=== PATIENT | male | born 1950 | race Caucasian/White ===

== ENCOUNTER 2016-07-05 01:47 | Observation (INO) | payer OTHER ==
--- NOTE | 2016-07-05 01:52 | EDPHY ---
H & P HPI/ROS: HPI CHIEF COMPLAINT: Lightheadedness HISTORY OF PRESENT ILLNESS: This patient very pleasant 65-year-old male, significant past medical history for COPD, coronary artery disease, bypass surgery, and presents emergency room by private vehicle with lightheadedness and a feeling as if he is going to pass out. Patient states he does feel slightly short of breath does not endorse any significant chest pain he tells me at times he does have some intermittent chest discomfort. He tells me he feels similar to when he was seen in the emergency room on 02/16/2016 and was diagnosed with dehydration. At that time he was having lightheadedness he had negative troponins a nonischemic EKG and a normal echocardiogram at that time. Since then he has followed up with Dr. Caban. Currently patient tells me he feels lightheaded he denies chest pain. Past Medical History: Coronary artery disease, COPD Past Surgical History: CABG Social History: denies daily use of drugs alcohol tobacco products Family History: Noncontributory ROS REVIEW OF SYSTEMS: A comprehensive 10 point review of systems is otherwise negative aside from elements mentioned in the history of present illness. Exam Constitutional triage nursing summary reviewed, vital signs reviewed, awake/ alert. Eyes normal conjunctivae and sclera, EOMI, PERRLA. HENT normal inspection, atraumatic, moist mucus membranes, no epistaxis, neck supple/ no meningismus, no raccoon eyes. Respiratory clear to auscultation bilaterally, normal breath sounds, no respiratory distress, no wheezing. Cardiovascular bradycardia, regular rhythm, no murmur, no edema, distal pulses normal. Gastrointestinal soft, non-tender, no rebound, no guarding, normal bowel sounds, no distension, no pulsatile mass. Genitourinary no CVA tenderness. Musculoskeletal no midline vertebral tenderness, full range of motion, no calf swelling, no tenderness of extremities, no meningismus, good pulses, neurovascularly intact. Skin pink, warm, & dry, no rash, skin atraumatic. Neurologic awake, alert and oriented x 3, AAOx3, moves all 4 extremities equally, motor intact, sensory intact, CN II-XII intact, normal cerebellar, normal vision, normal speech. Psychiatric normal mood/affect. Heme/Lymph/Immune no lymphadenopathy. Differential diagnosis includes but is not limited to: ACS, atypical chest pain , pneumothorax, pneumonia, pulmonary embolism, aortic dissection, congestive heart failure, tumor, musculoskeletal pain, esophageal pain, GERD, peptic ulcer disease, pancreatitis Medical Decision Making: This patient be placed on full seo manager will obtain EKG, cardiac markers troponin and electrolytes. Patient received a fluid bolus.Will evaluate him for lightheadedness and shortness of breath. He has extensive cardiac history and will need evaluate this. Re-evaluation: EKG interpretation by me on record in [employer] system. Impression time of EKG 2:07 a.m., this EKG shows bradycardia significant T-wave abnormality in V4 V5 V6. There is a first-degree AV block with a MA interval of 338 left bundle- branch block present.When I compare this to his old EKG dated 02/16/2016 this is sinus rhythm with a left bundle-branch block present. The rate at that time was 95. His EKG today shows profound bradycardia. 0212: due to this patient's complaint of lightheadedness and severe bradycardia patient has been moved to ER room 2. He has been placed on full seo manager and life pack in case we need to pace. 0238: I spoke with Dr. Julio re-evaluated and saw the EKG. Bradycardia with 2- 1 block. He will come and see and evaluate the patient. This time the patient is resting comfortably no complaints no chest pain. Heart rate is currently 38 pulse ox 95% blood pressure 114/51. He remains on seo manager. He will be admitted to PCU for close observation. At this time Dr. Julio will come and see and evaluate the patient hold off on atropine last patient comes more stable. ED x-ray chest one view negative for acute cardiopulmonary disease. 0241: troponin noted to be positive. Patient has no chest pain at this time. Critical Care: Total Critical Care Time Spent Managing this Patient: 65 Minutes. This time was spent Exclusively with this patient. This Care was exclusive of procedures. The Organ System/life at risk was cardiac This Patient was in Critical Condition because severe bradycardia, positive troponin Source: Patient - Medical/Surgical History Hx Asthma: No Hx Chronic Respiratory Disease: Yes Hx Diabetes: No Hx Cardiac Disease: Yes Hx Renal Disease: No Hx Cirrhosis: No Hx Alcoholism: No Hx HIV/AIDS: No Hx Splenectomy or Spleen Trauma: No Other PMH: PMH: COPD, QUADRUPAL BYPASS stents x7,CHRONIC LUNG INFECTION,. espophogeal dilitation - Social History Smoking Status: Former smoker Constitutional: Initial Vital Signs Temperature (C) 36.8 C 07/05/16 01:52 Heart Rate 40 L 07/05/16 01:52 Respiratory Rate 20 07/05/16 01:52 Blood Pressure 138/62 H 07/05/16 01:52 O2 Sat (%) 92 07/05/16 01:52 O2 Delivery Mode Nasal Cannula O2 (L/minute) 2 Allergies/Adverse Reactions: No Known Allergies Allergy (Unverified 04/26/14 16:42) Home Medications: Medication Instructions Recorded predniSONE 10 mg PO DAILY 04/12/14 Albuterol [Proventil Inhaler HFA 2 puffs IH DAILY 07/05/16 (*)] Albuterol [Proventil Inhaler HFA 2 puffs IH Q4 PRN 07/05/16 (*)] Aspirin [Aspirin 81mg (*)] 81 mg PO DAILY 07/05/16 Cholecalciferol Vit D3 [Vitamin D3 1,000 units PO DAILY 07/05/16 (*)] Medical Decision Making - Data Points Laboratory Results: Laboratory Results 07/05/16 02:05 07/05/16 02:05 Medications Given: Discontinued Medications Aspirin (Aspirin) 324 mg PO EDNOW ONE Stop: 07/05/16 01:59 Last Admin: 07/05/16 02:13 Dose: 324 mg Bacitracin (Bacitracin 1000 Ml Irrigation) 50,000 units IRR ONCALL ONE Stop: 07/05/16 03:58 Last Admin: 07/05/16 10:49 Dose: Not Given Diazepam (Valium) 5 mg PO ONCALL ONE Stop: 07/05/16 11:29 Last Admin: 07/05/16 20:23 Dose: Not Given Diphenhydramine HCl (Benadryl) 25 mg PO ONCALL ONE Stop: 07/05/16 11:29 Last Admin: 07/05/16 20:23 Dose: Not Given Cefazolin Sodium/Dextrose (Ancef 2 Gm (Premix)) 100 mls @ 200 mls/hr IV ONCALL ONE PRN Reason: Protocol Stop: 07/05/16 04:26 Last Admin: 07/05/16 10:50 Dose: Not Given Cefazolin Sodium/Dextrose (Ancef 1 Gm (Premix)) 50 mls @ 200 mls/hr IV Q8H SHAVONNE PRN Reason: Protocol Stop: 07/05/16 18:14 Last Admin: 07/05/16 20:23 Dose: 50 mls Departure - Departure Disposition: [facility] Acute Clinical Impression: Symptomatic bradycardia Condition: Critical
[2016-07-05] MEDS ORDERED: ASPIRIN 81 MG CHEWABLE TAB PO ONE (01:58)
--- NOTE | 2016-07-05 02:04 | CPEKG ---
Heart Rate: 38 RR Interval: 1579 P-R Interval: 142 QRSD Interval: 168 QT Interval: 572 QTC Interval: 455 P [place]: 81 QRS [place]: -67 T Wave [place]: -82 EKG Severity - ABNORMAL ECG - EKG Impression: SINUS BRADYCARDIA EKG Impression: IVCD, CONSIDER ATYPICAL LBBB Electronically Signed By: Montez Vyas 05-Jul-2016 07:29:26
[2016-07-05 02:19] LABS: % IMMATURE GRANULYOCYTES 1.3 % (0.0-1.1); ABSOLUTE IMMATURE GRANULOCYTES 0.19 10^3/uL (0.00-0.10); ABSOLUTE NRBC COUNT 0.03 10^3/uL (0-0.01); ADD DIFF? NO; ADD MORPH? NO; ADD SCAN? NO; ATYPICAL LYMPHOCYTE FLAG 0 (0-99); FRAGMENT RBC FLAG 0 (0-99); HEMATOCRIT 49.6 % (40.0-51.0); HEMOGLOBIN 16.8 g/dL (13.7-17.5); LEFT SHIFT FLG 10 (0-99); LIPEMIA HEMOLYSIS FLAG 90 (0-99); MEAN CELL HEMOGLOBIN 33.3 pg (27.9-34.1); MEAN CELL HEMOGLOBIN CONCENTR. 33.9 g/dL (32.4-36.7); MEAN CELL VOLUME 98.2 fL (81.5-99.8); MEAN PLATELET VOLUME 10.4 fL (8.7-11.7); NRBC-AUTO% 0.2 % (0.0-0.2); PLATELET CLUMPS FLAG 0 (0-99); PLATELET COUNT 376 10^3/uL (150-400); RED BLOOD CELL COUNT 5.05 10^6/uL (4.40-6.38); RED CELL DISTRIBUTION WIDTH 13.5 % (11.5-15.2)
[2016-07-05 02:26] LABS: APTT 24.6 SEC (23.0-38.0); INR 0.96 (0.83-1.16); PROTIME(PATIENT) 12.7 SEC (12.0-15.0)
[2016-07-05 02:27] LABS: ALANINE AMINOTRANSFERASE 122 IU/L (21-72); ALBUMIN 4.1 g/dL (3.5-5.0); ALKALINE PHOSPHATASE 79 IU/L (38-126); ANION GAP 13 mEq/L (8-16); ASPARTATE AMINOTRANSFERASE 102 IU/L (17-59); BILIRUBIN,TOTAL 0.9 mg/dL (0.1-1.4); BILIRUBIN-CONJUGATED 0.3 mg/dL (0.0-0.5); BILIRUBIN-UNCONJUGATED 0.6 mg/dL (0.0-1.1); CALCIUM 9.4 mg/dL (8.5-10.4); CARBON DIOXIDE 27 mEq/l (22-31); CHLORIDE 99 mEq/L (97-110); GLOMERULAR FILTRATION RATE > 60; GLUCOSE 128 mg/dL (70-100); MAGNESIUM 1.9 mg/dL (1.6-2.3); POTASSIUM 3.9 mEq/L (3.5-5.2); SODIUM 139 mEq/L (134-144); TOTAL PROTEIN 7.4 g/dL (6.3-8.2)
[2016-07-05 02:39] LABS: CREATINE KINASE-MB FRACTION 2.24 ng/mL (0-3.19); TROPONIN I 0.497 ng/mL (0-0.034)
--- NOTE | 2016-07-05 03:32 | PDCARCONS ---
Cardiology Consult Reason for Consult: Second-degree and third-degree heart block, shortness of breath, dizziness Chief Complaint: dizziness, shortness of breath Requesting Physician: Dr. Montez Vyas History of Present Illness: 65-year-old male, known to our practice. He sees my partner Dr. Juventino Caban to the science May. He has a history of coronary artery disease, status post CABG in 2007. At that time the grafts included MAYA to LAD, SVG to diagonal, SVG to obtuse marginal and SVG to right coronary artery. He presented with acute coronary syndrome in the year after his CABG and underwent stenting on 2 occasions, according to the patient he has 7 stents, 2 stents were placed SVG to RCA, ramus intermedius, lad and obtuse marginal. He has been feeling intermittent dizziness over the last year. In February he came to the emergency room with an episode of near syncope, no etiology was discovered and he was discharged home. He was sleeping yesterday evening, walk up around 830 feeling dizzy. He noticed that his pulse was slow and arrived to the emergency room. At this time he reports ongoing dizziness. He has shortness of breath which is at baseline according to him. He denies any acute chest discomfort at this time. History Information - Allergies/Home Medication List Allergies/Adverse Reactions: No Known Allergies Allergy (Unverified 04/26/14 16:42) Home Medications: predniSONE 10 mg PO DAILY 04/12/14 [Last Taken 04/11/14] Albuterol [Proventil Inhaler HFA (RX)] 2 puffs IH Q4 04/26/14 [Last Taken Unknown] I have personally reviewed and updated: family history, medical history, social history - Surgical History Reports: coronary bypass surgery ( A) - Social History Smoking Status: Former smoker Physical Exam Temp Pulse Resp BP Pulse Ox 36.8 C 40 L 20 138/62 H 92 07/05/16 01:52 07/05/16 01:52 07/05/16 01:52 07/05/16 01:52 07/05/16 01:52 Eyes: PERRL, EOMI Ears, Nose, Mouth, Throat: moist mucous membranes Cardiovascular: regular rate and rhythym, bradycardia Respiratory: respiratory distress Gastrointestinal: normoactive bowel sounds, distension Genitourinary: no bladder fullness Skin: warm Musculoskeletal: full muscle strength Neurologic: AAOx3 Psychiatric: interacting appropriately, anxious Lab and Imaging 07/05/16 02:05 07/05/16 02:05 WBC 14.57 10^3/uL (3.80-9.50) H 07/05/16 02:05 RBC 5.05 10^6/uL (4.40-6.38) 07/05/16 02:05 Hgb 16.8 g/dL (13.7-17.5) 07/05/16 02:05 Hct 49.6 % (40.0-51.0) 07/05/16 02:05 MCV 98.2 fL (81.5-99.8) 07/05/16 02:05 MCH 33.3 pg (27.9-34.1) 07/05/16 02:05 MCHC 33.9 g/dL (32.4-36.7) 07/05/16 02:05 RDW 13.5 % (11.5-15.2) 07/05/16 02:05 Plt Count 376 10^3/uL (150-400) 07/05/16 02:05 MPV 10.4 fL (8.7-11.7) 07/05/16 02:05 Neut % (Auto) 68.8 % (39.3-74.2) 07/05/16 02:05 Lymph % (Auto) 20.3 % (15.0-45.0) 07/05/16 02:05 [place] % (Auto) 6.7 % (4.5-13.0) 07/05/16 02:05 Eos % (Auto) 2.4 % (0.6-7.6) 07/05/16 02:05 Baso % (Auto) 0.5 % (0.3-1.7) 07/05/16 02:05 Nucleat RBC Rel Count 0.2 % (0.0-0.2) 07/05/16 02:05 Absolute Neuts (auto) 10.02 10^3/uL (1.70-6.50) H 07/05/16 02:05 Absolute Lymphs (auto) 2.96 10^3/uL (1.00-3.00) 07/05/16 02:05 Absolute Monos (auto) 0.97 10^3/uL (0.30-0.80) H 07/05/16 02:05 Absolute Eos (auto) 0.35 10^3/uL (0.03-0.40) 07/05/16 02:05 Absolute Basos (auto) 0.08 10^3/uL (0.02-0.10) 07/05/16 02:05 Absolute Nucleated RBC 0.03 10^3/uL (0-0.01) H 07/05/16 02:05 Immature Gran % 1.3 % (0.0-1.1) H 07/05/16 02:05 Immature Gran # 0.19 10^3/uL (0.00-0.10) H 07/05/16 02:05 PT 12.7 SEC (12.0-15.0) 07/05/16 02:05 INR 0.96 (0.83-1.16) 07/05/16 02:05 APTT 24.6 SEC (23.0-38.0) 07/05/16 02:05 Sodium 139 mEq/L (134-144) 07/05/16 02:05 Potassium 3.9 mEq/L (3.5-5.2) 07/05/16 02:05 Chloride 99 mEq/L (97-110) 07/05/16 02:05 Carbon Dioxide 27 mEq/l (22-31) 07/05/16 02:05 Anion Gap 13 mEq/L (8-16) 07/05/16 02:05 BUN 23 mg/dL (7-23) 07/05/16 02:05 Creatinine 1.0 mg/dL (0.7-1.3) 07/05/16 02:05 Estimated GFR > 60 07/05/16 02:05 Glucose 128 mg/dL (70-100) H 07/05/16 02:05 Calcium 9.4 mg/dL (8.5-10.4) 07/05/16 02:05 Magnesium 1.9 mg/dL (1.6-2.3) 07/05/16 02:05 Total Bilirubin 0.9 mg/dL (0.1-1.4) 07/05/16 02:05 Conjugated Bilirubin 0.3 mg/dL (0.0-0.5) 07/05/16 02:05 Unconjugated Bilirubin 0.6 mg/dL (0.0-1.1) 07/05/16 02:05 AST 102 IU/L (17-59) H 07/05/16 02:05 ALT 122 IU/L (21-72) H 07/05/16 02:05 Alkaline Phosphatase 79 IU/L (38-126) 07/05/16 02:05 Creatine Kinase 61 IU/L (0-224) 07/05/16 02:05 CK-MB (CK-2) Fraction 2.24 ng/mL (0-3.19) 07/05/16 02:05 Troponin I 0.497 ng/mL (0-0.034) H 07/05/16 02:05 NT-Pro-B Natriuret Pep 1110 pg/mL (0-125) H 07/05/16 02:05 Total Protein 7.4 g/dL (6.3-8.2) 07/05/16 02:05 Albumin 4.1 g/dL (3.5-5.0) 07/05/16 02:05 Lipase 29.0 IU/L (23-300) 07/05/16 02:05 Visualized and Interpreted Chest x-ray results: Yes Visualized and Interpreted EKG results: Yes EKG Interpretation: Positive for: left bundle branch block EKG additional interpertation: 2-1 av block. Telemetry: Predominantly 2-1 av block with intermittent complete heart block. Underlying left bundle-branch block. Echocardiogram: Stat echocardiogram has been ordered and is pending at the time of this dictation A/P Assessment: 1. Coronary artery disease status post CABG and subsequent multiple PCIs 2. ischemic cardiomyopathy with last reported left ventricular ejection fraction of 40-45% 3. conduction system disease with known pre-existing left bundle-branch block, currently has 2-1 av block and intermittent complete heart block 4.COPD 5. 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 He has ischemic cardiomyopathy with known left ventricular ejection fraction of 40-45%. He has steroid-dependent COPD. He has underlying hyperlipidemia. He had presented with presyncope in February of 2016. No etiology was identified. Is presenting with similar symptoms now, he has underlying conduction system disease with left bundle-branch block and currently has 2-1 heart block and intermittent complete AV block on telemetry monitoring. Permanent pacemaker is indicated. Risks of the procedure were discussed with him and his , these include , cardiac perforation, pneumothorax, infection, DVT, bleeding etc. Procedure will be performed this morning. His troponin I is mildly elevated at 0.4. His BNP is also elevated at 1100. His EKG at 2:07 a.m. shows normal sinus rhythm, 2-1 av block with a ventricular rate of 39 beats per minute and left bundle branch block. Compared to old EKG from January 2016, the QRS morphology is similar. However T inversions in leads 2-3 AVF and V3 to V6 are new compared to the previous EKG. Current findings are consistent with myocardial ischemia due to hypoperfusion and bradyarrhythmia. We will obtain a stat echocardiogram to assess for any new wall motion abnormalities. In the absence of wall motion abnormalities, will proceed directly to permanent pacemaker implantation. If there are new wall motion abnormalities, he will need coronary angiography and temporary pacemaker followed by implantation of permanent pacemaker. Above was discussed with the patient and his . They understand the risks and willing to proceed.
--- NOTE | 2016-07-05 03:46 | CPEKG ---
Heart Rate: 38 RR Interval: 1579 QRSD Interval: 168 QT Interval: 580 QTC Interval: 462 P [place]: 72 QRS [place]: -62 T Wave [place]: 260 EKG Severity - ABNORMAL ECG - EKG Impression: COMPLETE AV BLOCK WITH WIDE QRS COMPLEX Electronically Signed By: Montez Vyas 05-Jul-2016 07:29:26
[2016-07-05] MEDS ORDERED: ceFAZolin 2 GM/DEXTROSE 100 ML IV ONE (03:57)
[2016-07-05] MEDS ORDERED: BACITRACIN IRRIGATION/NS 50,000 UNITS/1,000 ML BTL IRR ONE (03:57)
[2016-07-05] MEDS ORDERED: NS 1,000 ML IV SCH (04:00)
[2016-07-05] MEDS ORDERED: LIDOCAINE 1% 30 ML SDV ONE ×2 (04:12→12:25)
[2016-07-05] MEDS ORDERED: BUPIVACAINE 0.5% 30 ML SDV ONE (04:13)
[2016-07-05] MEDS ORDERED: MIDAZOLAM 2 MG/2 ML VIAL ONE ×4 (04:13→14:51)
[2016-07-05] MEDS ORDERED: fentaNYL 100 MCG/2 ML INJ ONE ×3 (04:13→14:11)
--- NOTE | 2016-07-05 04:18 | ECHO ---
[id number] + + [address] : : [place] [address] : : [phone] + + Adult Echocardiographic Report + --------+ :Name: SUNNI SNYDER Date: 07/05/2016 04:00 AM : : Hospital Admission Number: [id number] Loca tion: ER: :: 1950 Gender: Male : :Age: 65 yrs Race: WH : :Reason For Study: heart block elev trop : :History: bradycardia, sob, cad : + --------+ MMode/2D Measurements \T\ Calculations IVSd: 0.99 cm LVIDd: 4.4 cmFS: 27.0 % LVLd ap4: 9.2 cm LVPWd: 0.89 cm LVIDs: 3.2 cmEDV(Teich): 87.7 mlEDV(MOD-sp4): 120.0 ml ESV(Teich): 41.3 mlLVLs ap4: 7.8 cm EF(Teich): 52.9 % ESV(MOD-sp4): 57.0 ml EF(MOD-sp4): 52.5 % SV(MOD-sp4): 63.0 ml Normal Measurement Values: + + :LVIDd (3.5-5.7cm) IVSd (0.6-1.1cm) LVPWd (0.6-1.1cm) Aortic Root (2.0-3.7cm)Left Atrium (1.5-4.0cm): :LV Vol(d) (76-115ml) LV Vol(s) (29-48ml) Ejec Fraction (50-65%)PV Mika (0.6- 1.2m/s) TV Mika (0.4-1.0m/s) : :MV E Mika (0.8-1.0m/s)MV A Mika (0.3-1.0m/s)LVOT Mika (0.7-1.2m/s) Asc Ao Mika ( 0.9-1.8m/s) : + + Doppler Measurements \T\ Calculations MV E max mika: Ao V2 max: LV V1 max: TR max mika: 96.3 cm/sec 147.0 cm/sec 92.8 cm/sec 322.0 cm/sec MV A max mika: Ao max PG: LV V1 max PG: TR max P.0 cm/sec 8.6 mmHg 3.4 mmHg 41.5 mmHg MV E/A: 0.84 RAP systole: 10.0 mmHg RVSP(TR): 51.5 mmHg Left Ventricle The left ventricle is normal in size. There is normal left ventricular wall thickness. Left ventricular systolic function is low normal. Ejection Fraction = 50%. Basal inferior hypokinesis. Abnormal septal motion consistent with BBB. Right Ventricle The right ventricle is normal in size and function. Atria The left atrium is mildly dilated. The right atrium is mildly dilated. A dilated inferior vena cava suggests increased right atrial pressure. Mitral Valve The mitral valve is normal in structure and function. There is no mitral valve stenosis. There is mild to moderate mitral regurgitation. Tricuspid Valve The tricuspid valve is normal in structure and function. There is no tricuspid stenosis. There is mild to moderate tricuspid regurgitation. Right ventricular systolic pressure is 51mmHg. There is Doppler evidence for moderate pulmonary hypertension. Aortic Valve The aortic valve is trileaflet. There is mild aortic valve calcification. There is no aortic stenosis. Trace to mild aortic regurgitation. Pulmonic Valve The pulmonic valve is normal in structure and function. Mild pulmonic valvular regurgitation. Pericardium/Pleural There is no pericardial effusion. Conclusion A two-dimensional transthoracic echocardiogram with M-mode and Doppler was performed. Left ventricular systolic function is low normal. Ejection Fraction = 50%. Basal inferior hypokinesis. Abnormal septal motion consistent with BBB. The left atrium is mildly dilated. A dilated inferior vena cava suggests increased right atrial pressure. There is mild to moderate mitral regurgitation. There is mild to moderate tricuspid regurgitation. Right ventricular systolic pressure is 51mmHg. There is Doppler evidence for moderate pulmonary hypertension. Trace to mild aortic regurgitation. Mild pulmonic valvular regurgitation. Final Reading Physician: Blane Julio MD electronically signed on 07/05/2016 04:16 AM Ordering Physician: Montez Vyas Performed By: Carrie Rogers
[2016-07-05] MEDS ORDERED: IOPAMIDOL (ISOVUE-370) 150 ML BTL IV ONE ×5 (04:42→14:58)
--- NOTE | 2016-07-05 08:35 | CPEKG ---
Heart Rate: 39 RR Interval: 1538 P-R Interval: 338 QRSD Interval: 156 QT Interval: 576 QTC Interval: 464 P [place]: 0 QRS [place]: -66 T Wave [place]: 259 EKG Severity - ABNORMAL ECG - EKG Impression: COMPLETE HEART BLOCK WITH VENTRICULAR ESCAPE Electronically Signed By: Tricia Eid 06-Jul-2016 10:31:28
[2016-07-05 10:25] LABS: ADD DIFF? NO; ADD MORPH? NO; ADD SCAN? NO; ATYPICAL LYMPHOCYTE FLAG 10 (0-99); FRAGMENT RBC FLAG 10 (0-99); HEMATOCRIT 46.1 % (40.0-51.0); HEMOGLOBIN 15.7 g/dL (13.7-17.5); LEFT SHIFT FLG 0 (0-99); LIPEMIA HEMOLYSIS FLAG 90 (0-99); MEAN CELL HEMOGLOBIN 32.5 pg (27.9-34.1); MEAN CELL HEMOGLOBIN CONCENTR. 34.1 g/dL (32.4-36.7); MEAN CELL VOLUME 95.4 fL (81.5-99.8); MEAN PLATELET VOLUME 10.2 fL (8.7-11.7); PLATELET CLUMPS FLAG 10 (0-99); PLATELET COUNT 332 10^3/uL (150-400); RED BLOOD CELL COUNT 4.83 10^6/uL (4.40-6.38); RED CELL DISTRIBUTION WIDTH 13.6 % (11.5-15.2)
[2016-07-05] MEDS ORDERED: ALBUTEROL 60 PUFFS/8 GM MDI IH PRN (10:26)
--- NOTE | 2016-07-05 10:43 | CPEKG ---
Heart Rate: 85 RR Interval: 706 P-R Interval: 184 QRSD Interval: 150 QT Interval: 452 QTC Interval: 538 P [place]: 73 QRS [place]: -87 T Wave [place]: 76 EKG Severity - ABNORMAL ECG - EKG Impression: ATRIAL-SENSED VENTRICULAR-PACED RHYTHM Electronically Signed By: Tricia Eid 05-Jul-2016 15:09:32
[2016-07-05 10:53] LABS: ANION GAP 7 mEq/L (8-16); CALCIUM 8.6 mg/dL (8.5-10.4); CARBON DIOXIDE 24 mEq/l (22-31); CHLORIDE 107 mEq/L (97-110); CREATININE 0.8 mg/dL (0.7-1.3); GLOMERULAR FILTRATION RATE > 60; GLUCOSE 123 mg/dL (70-100); POTASSIUM 4.2 mEq/L (3.5-5.2); SODIUM 138 mEq/L (134-144)
[2016-07-05] MEDS ORDERED: DIAZEPAM 5 MG TAB PO ONE (11:28)
[2016-07-05] MEDS ORDERED: diphenhydrAMINE 25 MG CAP PO ONE ×2 (11:28→13:06)
--- NOTE | 2016-07-05 11:55 | CPEKG ---
Heart Rate: 89 RR Interval: 674 P-R Interval: 188 QRSD Interval: 154 QT Interval: 452 QTC Interval: 551 P [place]: 61 QRS [place]: -85 T Wave [place]: 79 EKG Severity - ABNORMAL ECG - EKG Impression: ATRIAL-SENSED VENTRICULAR-PACED RHYTHM Electronically Signed By: Tricia Eid 06-Jul-2016 10:30:21
[2016-07-05] MEDS: ALBUTEROL 60 PUFFS/8 GM MDI IH SCH (12:53)
[2016-07-05] MEDS ORDERED: DIAZEPAM 5 MG TAB ONE (13:07)
[2016-07-05] MEDS ORDERED: ASPIRIN EC 325 MG TAB PO ONE (13:07)
[2016-07-05] MEDS ORDERED: FAMOTIDINE 20 MG TAB ONE (13:07)
[2016-07-05] MEDS ORDERED: HEPARIN 10,000 UNIT/10 ML MDV ONE (13:44)
[2016-07-05] MEDS ORDERED: ATROPINE SULFATE 1 MG/10 ML SYR ONE ×2 (14:51→16:07)
[2016-07-05] MEDS ORDERED: IOPAMIDOL (ISOVUE-300) 100 ML BTL IV ONE (14:55)
--- NOTE | 2016-07-05 15:55 | CPEKG ---
Heart Rate: 78 RR Interval: 769 P-R Interval: 200 QRSD Interval: 152 QT Interval: 468 QTC Interval: 534 P [place]: 95 QRS [place]: -89 T Wave [place]: 81 EKG Severity - ABNORMAL ECG - EKG Impression: ATRIAL-SENSED VENTRICULAR-PACED RHYTHM Electronically Signed By: Tricia Eid 06-Jul-2016 10:30:07
--- NOTE | 2016-07-05 16:55 | SOAPPROG ---
SOAP Progress Note Assessment/Plan: Assessment: 1. Complete heart block. He is status post placement of a dual-chamber pacemaker. He is doing well. No apparent complications are noted. 2. History of coronary artery disease. This is detailed in Dr. Julio note. It has been 9 years since he has had an invasive evaluation. He states he had a stress test done a year ago at [facility] ([place], [place]). He is not sure of those results. Did have evidence of a troponin elevation at the time of this hospitalization. 3. Hyperlipidemia. 4. Reactive airway disease. Given his extensive cardiovascular disease history and presentation with elevated cardiac enzymes, he and I discussed further risk stratification. We specifically discussed both invasive and noninvasive options. After that discussion he elected to proceed with coronary angiography. The risks, benefits and alternatives were discussed with him. Further recommendations will be made pending the results of that study. 07/05/16 16:56 Subjective: The patient was seen and examined. His chart was reviewed. He had a pacemaker placed last night with Dr. Blane Julio given his presentation with complete heart block in symptoms of fatigue. He has been doing well since then. Notes that he is not experiencing chest pain or breathlessness. He did have an elevation of his cardiac enzymes with an extensive coronary disease history. Objective: Vital Signs Temp Pulse Resp BP Pulse Ox 36.6 C 85 12 120/62 95 07/05/16 12:00 07/05/16 12:00 07/05/16 12:00 07/05/16 12:00 07/05/16 12:00 Laboratory Results 07/05/16 10:00 07/05/16 10:00 07/04/16 07/05/16 07/06/16 05:59 05:59 05:59 Intake Total 50 Balance 50 PT 12.7 SEC (12.0-15.0) 07/05/16 02:05 INR 0.96 (0.83-1.16) 07/05/16 02:05 Physical Exam - Physical Exam General Appearance: WD/WN, no apparent distress Neck: non-tender, full range of motion Respiratory: lungs clear Cardiac/Chest: regular rate, rhythm, other (The pacemaker implantation site is bandaged with no indication of hematoma), No edema, No gallop, No JVD Peripheral Pulses: 2+: carotid (R), carotid (L) Abdomen: non-tender, soft Neuro/Psych: alert, normal mood/affect, oriented x 3 ICD10 Worksheet Patient Problems: Problems Problem Status Onset Dysphagia Acute Symptomatic bradycardia Acute
--- NOTE | 2016-07-05 16:58 | POSTOPPROG ---
Post Op Note Date of Operation: 07/05/16 Surgeon: Ernesto Chris Anesthesia: IV Sedation Pre-op Diagnosis: Coronary artery disease, elevated cardiac enzymes. Post-op Diagnosis: Same. Indication: Same. Procedure: Left heart catheterization, coronary angiography, left ventriculography, le Findings: See dictation. Inf/Abcess present in the surg proc area at time of surgery?: No Depth: Superfical (Skin SQ) EBL: Minimal Complications: The procedure was complicated by dissection of the right subclavian artery at the level of the internal mammary artery.
[2016-07-05] MEDS ORDERED: 1/2 NS 1,000 ML IV SCH (17:00)
[2016-07-05] MEDS ORDERED: ZOLPIDEM TARTRATE 5 MG TAB PO PRN (17:45)
[2016-07-05] MEDS: CLOPIDOGREL BISULFATE 75 MG TAB PO SCH (20:23)
[2016-07-06] MEDS: CLOPIDOGREL BISULFATE 75 MG TAB PO SCH (08:03)
[2016-07-06 08:05] VITALS: BP 127/76; PULSE 80; RESP 12; TEMP 97.8; O2SAT 95
[2016-07-06] MEDS ORDERED: ROSUVASTATIN CALCIUM 10 MG TAB PO SCH (09:00)
[2016-07-06] MEDS ORDERED: CHOLECALCIFEROL VIT D3 1,000 UNITS TAB PO SCH (09:00)
[2016-07-06] MEDS ORDERED: ASPIRIN 81 MG CHEWABLE TAB PO SCH (09:00)
[2016-07-06] MEDS ORDERED: predniSONE 10 MG TAB PO SCH (09:00)
--- NOTE | 2016-07-06 09:24 | CPEKG ---
Heart Rate: 81 RR Interval: 741 P-R Interval: 178 QRSD Interval: 160 QT Interval: 448 QTC Interval: 520 P [place]: 78 QRS [place]: -94 T Wave [place]: 75 EKG Severity - ABNORMAL ECG - EKG Impression: ATRIAL-SENSED VENTRICULAR-PACED COMPLEXES EKG Impression: LEFT ATRIAL ABNORMALITY Electronically Signed By: Tricia Eid 06-Jul-2016 10:29:56
[2016-07-06] MEDS: ALBUTEROL 60 PUFFS/8 GM MDI IH SCH (09:28)
--- NOTE | 2016-07-06 09:35 | GDS ---
[f rep st] DISCHARGE SUMMARY DISCHARGE DIAGNOSES: 1. Current presentation with symptomatic complete heart block. Status post permanent dual-chamber [employer] pacemaker implantation. 2. Known coronary artery disease. Previous bypass surgery in 2007. Previous multivessel PCI also in 2007. During this hospitalization, developed a type 2 non-ST elevation myocardial infarction. 3. Hyperlipidemia. 4. Hypertension. 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 He was found to be in complete heart block. His heart rate was 38 beats p er minute. He went to the cardiac catheterization laboratory, where a permanent dual-chamber pacema ker was placed by Dr. Blane Julio. There were no complications related to this procedure; and with r espect to his pacemaker implantation and heart block, he did well for the remainder of his hospital course. During this hospitalization, cardiac enzymes were trended. He did have a peak troponin of 0.86. Be cause of his troponin elevation and known coronary disease, he underwent cardiac catheterization. A full and separately dictated report is date detailed on the chart. This indicated that both of his internal mammary artery grafts were atretic. His saphenous vein graft to the right coronary artery , to the diagonal branch, and to the obtuse marginal branches were all patent. He did have an 80% d istal left main lesion. His graft to the circumflex retrograde filled his entire circumflex distrib ution and LAD territory. Unfortunately, there was a 70% lesion interposed between the anastomosis o f the vein graft in the obtuse marginal branch and his [place] circumflex and LAD territories. Addit ionally, his LAD territory filled through the distal left main 80% lesion. Therefore, it was though t that a large portion of his circumflex territory and LAD territory are ischemic. Fortunately, the patient is asymptomatic at the present time. His coronary angiogram was, however, complicated by d issection of his right subclavian artery and right internal mammary artery. His right internal mamm lane artery was, however, atretic; and as such, there were no cardiac complications. The dissection healed spontaneously. A CTA of the great vessels and head and neck did not indicate any compromise of his subclavian or carotid systems. The patient did not manifest any cardiac or neurologic sympto ms as a result of this complication. Following the procedure, the patient was monitored in the ICU overnight. Neurologic checks were noted to be normal, and he remained hemodynamically stable. At the time of admission, the patient states that he feels well. He is not experiencing any neurolo gic difficulties or cardiovascular complaints. He is also hemodynamically stable. DISCHARGE PHYSICAL EXAMINATION: VITAL SIGNS: Blood pressure is 127/76 with a mean of 93. Heart ra te is 80. Respiratory rate is 12. Oxygen saturation is 95% on room air. GENERAL: He is in no acu te distress. HEENT: No jugular venous distention or bruits, including subclavian bruits. VASCULAT URE: 2+ radial pulses. RESPIRATORY: He is breathing easily, using no accessory muscles. He has c lear lung hurtado on exam. CARDIAC: Precordial inspection demonstrates a healed sternotomy incision . He has a pacemaker in his left infraclavicular fossa, which is bandaged with no indication of hem atoma. He has regular rate and rhythm with no murmurs, gallops, or rubs. ABDOMEN: Soft. Right gr oin access site is soft without hematoma or bruit. EXTREMITIES: Warm and dry with 2+ pulses. DISCHARGE MEDICATIONS: 1. Albuterol inhaler every 4 hours p.r.n. 2. Albuterol inhaler 2 puffs daily. 3. Prednisone 10 mg daily. 4. Aspirin 81 mg daily. 5. Vitamin D. 6. Plavix 75 mg daily. 7. Rosuvastatin 10 mg daily. FOLLOWUP: His case will be discussed at our multidisciplinary conference this coming Saturday. I would like him to follow up with Dr. Caban at the end of next week. /[id number]/MODL
--- NOTE | 2016-07-06 15:46 | CPIP ---
[f rep st] INVASIVE CARDIAC PROCEDURE DATE OF PROCEDURE: 07/05/2016 INDICATIONS: The patient is a 65-year-old male with known coronary disease, previous bypass surgery , and previous multivessel stenting. He presents with complete heart block. He is status post impl antation of a permanent pacemaker. As part of his workup, troponins were drawn. He had evidence of elevated cardiac biomarkers consistent with a type 2 non-STEMI. PROCEDURE: Diagnostic left heart catheterization, coronary angiography, left ventriculography, left internal mammary artery angiography, right internal mammary artery graft angiography, saphenous vei n graft angiography. TECHNIQUE: Following informed consent, the patient was brought to the cardiac catheterization [facility] [place] in a fasting state. The right groin was prepped and draped in the usual sterile fashion. 2% lidocaine was infiltrated over the right femoral artery. Using modified Seldinger technique, access was gained to the right femoral artery. A 6-[place] SafeSheath was placed. Using standard __ , orthogonal images were obtained of the [place] coronary arteries, and left ventriculography was performed. Using an IMC catheter, imaging was obtained of the left internal mammary artery graft. Using the right Ebony catheter, we were able to cannulate the saphenous vein graft to the diagonal branch and obtuse marginal branches. Multiple catheters were used to try to cannulate the saphenou s vein graft to the right coronary artery. Ultimately, an AR 1 was used to successfully cannulate t his vessel. The right internal mammary artery graft was cannulated with an IMC catheter. Unfortuna tely, this resulted in dissection of this atretic internal mammary artery graft. Following the proc edure, angiography was performed of the right femoral vein. This was closed using an Angio-Seal dev ice. FINDINGS: Hemodynamics: The left ventricular pressure was 99/10/17 mmHg; aortic pressure 108/63/86 mmHg. There was no transaortic pressure gradient noted on pullback. Angiography: 1. Left main: Left main is a large caliber vessel. The vessel itself is heavily calcified. There is a distal 80% stenosis with an eccentric calcium shelf. This distal lesion involves the trifurca tion of the left anterior descending, large ramus intermedius branches, and circumflex distribution. 2. Left anterior descending: The left anterior descending is a large caliber transapical vessel. There are small diagonal branches noted. A majority of the lateral wall is supplied by the ramus in termedius branch. There is a long stented segment in the proximal and mid vessel which appears to b e widely patent with very minimal in-stent restenosis. As noted previously, the ostium of the LAD i s involved with a quadrification lesion with the left main, LAD, circumflex, and ramus intermedius b ranches. 3. Circumflex: Is circumflex is moderate caliber in the proximal vessel. It is distally occluded after the origin of an obtuse marginal branch. The vessel itself is diffusely diseased in the proxi mal segment with luminal irregularities up to 40%. The visible obtuse marginal branch is grafted wi th retrograde opacification into the saphenous vein graft. There is an interposing 70% lesion at th e proximal portion of this obtuse marginal branch. 4. Ramus intermedius: The ramus intermedius vessel is a large caliber vessel that supplies a major ity of the lateral wall. It is completely stented in the proximal and mid segment. There are lumin al irregularities noted up to 40% with minimal in-stent restenoses. 5. Right coronary artery: The right coronary artery is ostially occluded. 6. Left internal mammary artery: This does not appear to have been used as a conduit. The vessel itself is atretic. 7. Right internal mammary artery: The right internal mammary artery extends across the midline. I t appears to have been used as a graft; however, there is no significant opacification of the mi'kmaq vessel. As stated previously, as a complication of this procedure, this vessel was dissected. 8. Saphenous vein graft to the diagonal: This is a large caliber vessel with very slow flow. Ther e is size mismatch between the graft and the [place] diagonal, which is severely and diffusely diseas ed. There is dye hang-up within the saphenous vein graft with no retrograde opacification through t he [place] diagonal into the left anterior descending. 9. Saphenous vein graft to the obtuse marginal branch: This graft is widely patent. There is retr ograde opacification through the [place] circumflex into the left anterior descending and ramus inter medius vessels. There is, however, a lesion up to 70% within the proximal portion of this obtuse ma rginal branch. This graft itself has slow flow. Left ventriculography: The ejection fraction is 50% to 55% with mild global hypokinesis and 2+ mitr al insufficiency. IMPRESSION: 1. Severe [place] coronary artery disease as described above, with an 80% distal left main lesion th at involves the origin of the left anterior descending, circumflex, and ramus intermedius vessels. Additionally, the right coronary artery is occluded proximally, and the LAD and ramus intermedius br anches have been heavily stented with minimal in-stent restenoses. 2. Patent saphenous vein graft to the diagonal branch; although there is a size mismatch and a heav jaxon diseased mi'kmaq diagonal branch. There is also a patent saphenous vein graft to an obtuse manohar nal branch. 3. Unused left internal mammary artery graft to the left anterior descending and atretic right inte rnal mammary artery to what is likely the left anterior descending. This right internal mammary art janene was dissected as a complication of this procedure. 4. Because of the graft and mi[place] coronary anatomy, the LAD, circumflex, and ramus intermedius ves sels are all compromised, as they fill through an 80% left main lesion, and the circumflex itself is provided flow through a vein graft with an interposing 70% lesion. 5. Low normal left ventricular systolic function with 2+ mitral insufficiency. 6. Clinical presentation with complete heart block and a type 2 hhe-ET-sunxajlse myocardial infarct ion. RECOMMENDATIONS: 1. For the present time, he will be treated aggressively with medical therapy. 2. Will consider options for revascularization to include repeat coronary artery bypass graft surge ry or potentially moderate risk percutaneous intervention of the left main coronary artery. /[id number]/MODL
--- NOTE | 2016-07-09 15:08 | EPPROC ---
Electrophysiology Procedure Note: PROCEDURE PERFORMED: 1. Implantation of an A/V Pacemaker 2. Subclavian vein angiography 3. Fluoroscopy PROCEDURE DATE JULY 05, 2016 INDICATION: Complete AV block PROCEDURE NOTE: Patient presented to the cardiac catheterization laboratory in a fasting, post absorptive state . CCL RN administered sedation. The left infraclavicular area was prepped and draped in the usual sterile fashion. Lidocaine plus bupivacaine was used for local anesthesia. Left subclavian venography was performed by injection of iodinated contrast into the left antecubital vein. This was done to assure patency of the vein and also to assess for any anatomical aberrations. Using a combination of blunt and sharp dissection and electrocautery, the dissection was carried down to the prepectoral fascia. A pocket was made in this anatomical plane. All bleeding was controlled with electrocautery. The pocket was packed with gauze soaked in antibiotic solution. Fluoroscopy was utilized during the entire procedure for venous access and placement of the leads. Using a direct stick technique the left extrathoracic axillary vein was accessed with 2 sticks using the modified Seldinger technique. Placement of the guidewires into the venous system was confirmed by low-pressure blood return and also by visualizing the guidewires advancing into the inferior vena cava. A purse string suture was applied around the guidewires. Two #7 [place] sheaths were advanced under fluoroscopic guidance over the guidewire. An active fixation ventricular lead was advanced into the right ventricular apex and screwed in place. An active fixation atrial lead was advanced into the right atrial appendage and screwed in place. The peel away sheaths were removed. Pacing thresholds, sensing parameters and lead impedances were measured. There was no diaphragmatic stimulation at maximum output. The leads were sutured to the prepectoral fascia with 3 nonabsorbable sutures each. The pocket was again inspected for any bleeding. The leads were attached to the pacemaker securely. The pacemaker was inserted into the pocket and secured in place with a nonabsorbable suture. The atrial lead dislodged after the pacemaker pocket was closed and therefore had to be repositioned. Fluoroscopy was performed in SANTIZO and HARISH planes to verify right-sided placement of the leads. Also fluoroscopy of the pacemaker pocket was performed. The pacemaker pocket was closed in 3 layers with absorbable monocryl sutures and dorothy. Appropriate dressing was applied. The patient left the cardiac catheterization laboratory in stable condition. Serial Numbers: 1. Device: SJM Assurity MRI 2272 SN [id number] 2. Atrial Lead: SJM Tendril 8TC SN [id number] 3. Ventricular Lead: SJM Tendril 8TC SN [id number] Stimulation Thresholds & Impedance Measurements: 1. Atrial Lead 0.7 V 0.5 ms 1.5 mA P 2.3 mV 446 ohm 2. Ventricular Lead 0.8 V 0.5 ms 1.2 mA R 8.4 mV 674 ohm Neil Pacing Parameters 1. Pacing mode: DDDR 2. Lower rate: 60 ppm 3. Upper tracking rate: 120 ppm 4. Upper sensor rate: 120 ppm Patient Problems: Problems Problem Status Onset Dysphagia Acute Symptomatic bradycardia Acute
== END 2016-07-06 10:14 | disposition home or self-care (01) ==
LOC: INTOOBSV 02:37 → F2W 09:24 → F2N 17:11
PROVIDERS: ADMIT Internal Medicine Cardiovascular Disease; ATTEND Internal Medicine Cardiovascular Disease
PROC: 02H63JZ Insertion of Pacemaker Lead into Right Atrium, Percutaneous Approach (ICD-10-PCS; principal; 2016-07-05)
PROC: 02HK3JZ Insertion of Pacemaker Lead into Right Ventricle, Percutaneous Approach (ICD-10-PCS; principal; 2016-07-05)
PROC: 0JH606Z Insertion of Pacemaker, Dual Chamber into Chest Subcutaneous Tissue and Fascia, Open Approach (ICD-10-PCS; principal; 2016-07-05)
PROC: B2111ZZ Fluoroscopy of Multiple Coronary Arteries using Low Osmolar Contrast (ICD-10-PCS; 2016-07-05)
PROC: B2151ZZ Fluoroscopy of Left Heart using Low Osmolar Contrast (ICD-10-PCS; 2016-07-05)
PROC: 4A023N7 Measurement of Cardiac Sampling and Pressure, Left Heart, Percutaneous Approach (ICD-10-PCS; 2016-07-05)
DX: I44.2 Atrioventricular block, complete (principal); I21.4 Non-ST elevation (NSTEMI) myocardial infarction; I25.10 Atherosclerotic heart disease of native coronary artery without angina pectoris; I97.51 Accidental puncture and laceration of a circulatory system organ or structure during a circulatory system procedure; T82.855A Stenosis of coronary artery stent, initial encounter; Z95.1 Presence of aortocoronary bypass graft; I10 Essential (primary) hypertension; J44.9 Chronic obstructive pulmonary disease, unspecified; Z87.891 Personal history of nicotine dependence; Z95.5 Presence of coronary angioplasty implant and graft; I25.5 Ischemic cardiomyopathy; Z79.52 Long term (current) use of systemic steroids; I50.9 Heart failure, unspecified
CPT/HCPCS: 33208; 70496; 70498; 71010; 71020; 93005; 93308; 93459; 99291; C1785; C1898; G0378; J0690; J1644; J2250; J3010; Q9967; J0461

== ENCOUNTER → 2016-07-18 | Outpatient (CLI) | payer OTHER | LOC: BHFA 15:30 | PROVIDERS: ATTEND Internal Medicine Cardiovascular Disease | DX: I25.10 Atherosclerotic heart disease of native coronary artery without angina pectoris (principal) | CPT/HCPCS: 93306-PO ==

== ENCOUNTER 2016-08-10 11:10 | Observation (INO) | payer OTHER ==
[2016-08-10] MEDS ORDERED: NS 1,000 ML IV ONE (11:14)
[2016-08-10] MEDS ORDERED: DIAZEPAM 5 MG TAB PO ONE (11:14)
[2016-08-10] MEDS ORDERED: FAMOTIDINE 20 MG TAB PO ONE (11:14)
[2016-08-10] MEDS ORDERED: ASPIRIN EC 325 MG TAB PO ONE ×2 (11:14→11:45)
[2016-08-10] MEDS ORDERED: diphenhydrAMINE 25 MG CAP PO ONE ×2 (11:14→11:45)
--- NOTE | 2016-08-10 11:33 | CPEKG ---
Heart Rate: 77 RR Interval: 779 P-R Interval: 187 QRSD Interval: 158 QT Interval: 456 QTC Interval: 517 P [place]: 75 QRS [place]: 268 T Wave [place]: 71 EKG Severity - ABNORMAL ECG - EKG Impression: ATRIAL-SENSED VENTRICULAR-PACED COMPLEXES EKG Impression: NONSPECIFIC IVCD WITH LAD Electronically Signed By: Elmer Pool 10-Aug-2016 20:40:48
[2016-08-10] MEDS ORDERED: FAMOTIDINE 20 MG TAB ONE (11:45)
[2016-08-10] MEDS ORDERED: DIAZEPAM 5 MG TAB ONE (11:46)
[2016-08-10 11:49] LABS: % IMMATURE GRANULYOCYTES 0.4 % (0.0-1.1); ABSOLUTE IMMATURE GRANULOCYTES 0.03 10^3/uL (0.00-0.10); ADD DIFF? NO; ADD MORPH? NO; ADD SCAN? NO; ATYPICAL LYMPHOCYTE FLAG 10 (0-99); FRAGMENT RBC FLAG 0 (0-99); HEMATOCRIT 47.1 % (40.0-51.0); HEMOGLOBIN 16.1 g/dL (13.7-17.5); LEFT SHIFT FLG 0 (0-99); LIPEMIA HEMOLYSIS FLAG 90 (0-99); MEAN CELL HEMOGLOBIN 32.1 pg (27.9-34.1); MEAN CELL HEMOGLOBIN CONCENTR. 34.2 g/dL (32.4-36.7); MEAN PLATELET VOLUME 10.7 fL (8.7-11.7); PLATELET CLUMPS FLAG 10 (0-99); PLATELET COUNT 232 10^3/uL (150-400); RED BLOOD CELL COUNT 5.01 10^6/uL (4.40-6.38); RED CELL DISTRIBUTION WIDTH 13.2 % (11.5-15.2)
[2016-08-10 11:58] LABS: INR 1.02 (0.83-1.16); PROTIME(PATIENT) 13.3 SEC (12.0-15.0)
[2016-08-10 12:19] LABS: ANION GAP 13 mEq/L (8-16); CALCIUM 9.3 mg/dL (8.5-10.4); CARBON DIOXIDE 22 mEq/l (22-31); CHLORIDE 108 mEq/L (97-110); CHOLESTEROL 136 mg/dL (140-220); CHOLESTEROL/HDL RATIO 2.13 RATIO (1.00-4.97); CREATININE 0.7 mg/dL (0.7-1.3); GLOMERULAR FILTRATION RATE > 60; GLUCOSE 122 mg/dL (70-100); HIGH DENSITY LIPOPROTEIN 64 mg/dL (40-65); LDL/HDL RATIO 0.92 RATIO (1.00-3.64); LOW DENSITY LIPOPROTEIN 59 mg/dL (80-100); MAGNESIUM 1.8 mg/dL (1.6-2.3); NON-HIGH DENSITY LIPOPROTEIN 72 mg/dL (90-129); POTASSIUM 4.2 mEq/L (3.5-5.2); SODIUM 143 mEq/L (134-144); TRIGLYCERIDE 69 mg/dL (40-150); VERY LOW DENSITY LIPOPROTEINS 13 mg/dL (8-25)
[2016-08-10] MEDS ORDERED: fentaNYL 100 MCG/2 ML INJ ONE ×2 (14:57→16:11)
[2016-08-10] MEDS ORDERED: LIDOCAINE 1% 30 ML SDV ONE (14:57)
[2016-08-10] MEDS ORDERED: IOPAMIDOL (ISOVUE-370) 150 ML BTL IV ONE ×2 (14:58→15:02)
[2016-08-10] MEDS ORDERED: MIDAZOLAM 2 MG/2 ML VIAL ONE ×2 (14:58→15:02)
[2016-08-10] MEDS ORDERED: NITROGLYCERIN 1,500 MCG/15 ML VIAL MISC ONE (15:02)
[2016-08-10] MEDS ORDERED: BIVALIRUDIN 250 MG/5 ML VIAL IV ONE (15:02)
[2016-08-10] MEDS ORDERED: ONDANSETRON 4 MG/2 ML VIAL IVP PRN (17:12)
[2016-08-10] MEDS ORDERED: NITROGLYCERIN 0.4 MG BTL SL PRN (17:12)
[2016-08-10] MEDS ORDERED: HYDROCODONE/APAP 5/325 TAB PO PRN (17:12)
[2016-08-10] MEDS ORDERED: NS 1,000 ML IV SCH (17:15)
[2016-08-10] MEDS ORDERED: ZOLPIDEM TARTRATE 5 MG TAB PO PRN (17:17)
--- NOTE | 2016-08-10 17:43 | CPIP ---
[f rep st] INVASIVE CARDIAC PROCEDURE DATE OF PROCEDURE: 08/10/2016 PROCEDURE PERFORMED: Percutaneous coronary intervention of a protected distal left main/proximal le ft anterior descending with angioplasty of the ostium of a large ramus intermedius. INDICATIONS: The patient is a 65-year-old male with a history of 4-vessel coronary bypass surgery p erformed 9 years ago. He has symptoms of dyspnea with exertion. A recent cardiac catheterization d emonstrated that he had a distal left main lesion of approximately 70%. The ostial LAD was also 70% to 80%. There was a large ramus intermedius, which also had moderate proximal disease and was imme diately adjacent to the primary lesion. The patient's left internal mammary graft to left anterior descending was atretic. He had patent saphenous vein grafts to a diagonal branch, and obtuse margin al branch of the circumflex, and distal RCA. His left ventricular systolic function was moderately reduced with an ejection fraction approximately 40%. On his left ventriculogram, there was signific ant mitral regurgitation and it was felt that he might need repeat open heart surgery for mitral lupe ve repair plus repeat grafting of the left anterior descending and ramus intermedius. However, subs equent echocardiography demonstrated only mild mitral regurgitation. The patient's case was present ed at our weekly cath conference and the decision was made to proceed with protected left main/proxi mal LAD PCI with provisional possible stenting of the ramus intermedius as well. DESCRIPTION OF PROCEDURE: The right groin was prepped and draped in sterile fashion. An 8-[place] s sanchez was placed in the right femoral artery. An 8-[place] CLS 3.5 guide catheter was advanced to th e left main. Guiding shots were performed. The patient received intravenous Angiomax. An Intuitio n guidewire was advanced to the apical portion of the left anterior descending. Pre-dilatation of t he distal left main/ostial LAD lesion was performed using a 3.0 x 10 mm cutting balloon. A 3.0 x 20 mm Synergy stent was advanced spanning from the midportion of the left main into the proximal porti on of the left anterior descending. The stent was deployed at high pressure. The proximal 3rd of t he stent was post dilated with a 4.5 x 8 mm [place] Emerge balloon. A 2nd Intuition guidewire was advanc ed into the ramus intermedius. A 3.0 x 8 mm Emerge balloon was used to perform angioplasty at the o stium of the ramus intermedius to open up "stent penitentiary." Final angiograms demonstrated zero percent residual in the left main and left anterior descending. There was less than 20% residual in the pro ximal ramus intermedius. COMPLICATIONS: None. CONCLUSION: Successful PCI of the distal left main/proximal LAD using a single drug-coated stent. /[id number]/MODL
--- NOTE | 2016-08-10 17:47 | CPEKG ---
Heart Rate: 72 RR Interval: 833 P-R Interval: 204 QRSD Interval: 166 QT Interval: 484 QTC Interval: 530 P [place]: 68 QRS [place]: -90 T Wave [place]: 70 EKG Severity - ABNORMAL ECG - EKG Impression: ATRIAL-SENSED VENTRICULAR-PACED RHYTHM Electronically Signed By: Elmer Pool 10-Aug-2016 20:40:53
[2016-08-11 03:38] VITALS: O2SAT 92
[2016-08-11 05:26] LABS: % IMMATURE GRANULYOCYTES 0.4 % (0.0-1.1); ABSOLUTE IMMATURE GRANULOCYTES 0.03 10^3/uL (0.00-0.10); ADD DIFF? NO; ADD MORPH? NO; ADD SCAN? NO; ATYPICAL LYMPHOCYTE FLAG 10 (0-99); FRAGMENT RBC FLAG 0 (0-99); HEMATOCRIT 41.1 % (40.0-51.0); LEFT SHIFT FLG 0 (0-99); LIPEMIA HEMOLYSIS FLAG 90 (0-99); MEAN CELL HEMOGLOBIN 32.8 pg (27.9-34.1); MEAN CELL HEMOGLOBIN CONCENTR. 34.1 g/dL (32.4-36.7); MEAN CELL VOLUME 96.3 fL (81.5-99.8); PLATELET CLUMPS FLAG 0 (0-99); PLATELET COUNT 184 10^3/uL (150-400); RED BLOOD CELL COUNT 4.27 10^6/uL (4.40-6.38); RED CELL DISTRIBUTION WIDTH 13.2 % (11.5-15.2)
[2016-08-11 05:36] LABS: ALBUMIN 3.2 g/dL (3.5-5.0); ANION GAP 7 mEq/L (8-16); ASPARTATE AMINOTRANSFERASE 21 IU/L (17-59); BILIRUBIN,TOTAL 0.7 mg/dL (0.1-1.4); CALCIUM 8.1 mg/dL (8.5-10.4); CARBON DIOXIDE 23 mEq/l (22-31); CHLORIDE 111 mEq/L (97-110); CREATININE 0.8 mg/dL (0.7-1.3); GLOMERULAR FILTRATION RATE > 60; GLUCOSE 74 mg/dL (70-100); LACTATE DEHYDROGENASE 590 IU/L (313-618); MAGNESIUM 1.8 mg/dL (1.6-2.3); SODIUM 141 mEq/L (134-144)
[2016-08-11 08:00] VITALS: BP 106/61; PULSE 69; RESP 14; TEMP 98.3
[2016-08-11] MEDS ORDERED: ALBUTEROL 60 PUFFS/8 GM MDI IH SCH (09:00)
[2016-08-11] MEDS ORDERED: OMEGA-3 FATTY ACIDS 1,000 MG CAP PO SCH (09:00)
[2016-08-11] MEDS ORDERED: ROSUVASTATIN CALCIUM 10 MG TAB PO SCH (09:00)
[2016-08-11] MEDS ORDERED: PRASUGREL HCL 10 MG TAB PO SCH ×2 (09:00)
[2016-08-11] MEDS ORDERED: ASPIRIN EC 325 MG TAB PO SCH (09:00)
[2016-08-11] MEDS ORDERED: predniSONE 10 MG TAB PO SCH (09:00)
--- NOTE | 2016-08-11 12:40 | CPIP ---
[f rep st] INVASIVE CARDIAC PROCEDURE DATE OF PROCEDURE: 08/11/2016 ADMIT DIAGNOSES: 1. Coronary artery disease, status post bypass surgery. 2. Moderate mitral regurgitation. The patient has a known protected distal left main lesion. Erin ent has been presented at conference, and it was thought that he should have a trial of protected le ft main proximal left anterior descending percutaneous coronary intervention with provisional stenti ng of the ramus intermedius. HOSPITAL COURSE: The patient was admitted and underwent successful PCI of the distal left main and proximal LAD using a single drug coated stent with provisional angioplasty of the ostium of a large ramus intermedius vessel. This was performed from a right groin approach, under the care of Dr. Mamadou jasso. The patient was kept in the hospital overnight, and on the morning of his discharge, the pat ient is medically stable and ready for discharge home. His groin reveals a small area of ecchymoses with minor bleeding, so I held approximately 15 minutes of manual pressure and reapplied a sterile dressing. The patient is feeling well. His vital signs were stable and revealed a blood pressure o f 106/61 with a mean pressure of 76, heart rate 69, and 92% sat on room air. He was in good spirits and felt well. His hemoglobin and hematocrit decreased from 16.1 and 47.1 to 14.0 and 41.1 postpr ocedure. His chemistry was also stable with a BUN and creatinine of 14 and 0.8. The patient is to be discharged to home, including prednisone 10 mg p.o. daily, aspirin 81 mg daily, albuterol Provent il inhaler 2 puffs inhaled daily, rosuvastatin (Crestor) 10 mg p.o. daily, and aspirin 325 mg p.o. d aily. His activities to be limited by groin precautions and should return promptly to the emergency department should he experience chest pain, pressure, and tightness. I have explained that he shou ld remain on the prasugrel and aspirin in combination for at least 1 year following today's interven tion, and consideration for longer term dual antiplatelet therapy will be left to the discussion of his primary care cable weaver, Dr. Jose Caban, or with Dr. Taqueria Riley. The patient understand s his discharge instructions and is ready to be discharged home in good and stable condition. He is to follow up with Dr. Riley and has a scheduled appointment for that early next week. /[id number]/MODL
== END 2016-08-11 13:15 | disposition home or self-care (01) ==
LOC: FCATH 11:10 → F2W 17:12
PROVIDERS: ADMIT Internal Medicine Interventional Cardiology; ATTEND Internal Medicine Interventional Cardiology
PROC: 027034Z Dilation of Coronary Artery, One Artery with Drug-eluting Intraluminal Device, Percutaneous Approach (ICD-10-PCS; principal; 2016-08-10)
DX: I25.10 Atherosclerotic heart disease of native coronary artery without angina pectoris (principal); I34.0 Nonrheumatic mitral (valve) insufficiency; I25.5 Ischemic cardiomyopathy; I44.7 Left bundle-branch block, unspecified; E78.5 Hyperlipidemia, unspecified; J44.9 Chronic obstructive pulmonary disease, unspecified; Z95.1 Presence of aortocoronary bypass graft
CPT/HCPCS: 92920; 93005; C1725; C1760; C1769; C1874; C1887; C9600; J0583; J1644; J2250; J3010; Q9967

== ENCOUNTER → 2016-08-30 | Outpatient (CLI) | payer OTHER | LOC: BHFA 11:30 | PROVIDERS: ATTEND Internal Medicine Cardiovascular Disease | DX: I25.10 Atherosclerotic heart disease of native coronary artery without angina pectoris (principal); I25.5 Ischemic cardiomyopathy; I44.7 Left bundle-branch block, unspecified ==

== ENCOUNTER 2017-08-18 14:38 | Inpatient (IN) | payer OTHER ==
--- NOTE | 2017-08-18 15:00 | CPEKG ---
Heart Rate: 77 RR Interval: 779 P-R Interval: 188 QRSD Interval: 166 QT Interval: 432 QTC Interval: 489 P [place]: 67 QRS [place]: -87 T Wave [place]: 82 EKG Severity - ABNORMAL ECG - EKG Impression: ATRIAL-SENSED VENTRICULAR-PACED COMPLEXES EKG Impression: LEFT ATRIAL ABNORMALITY EKG Impression: RIGHT BUNDLE BRANCH BLOCK EKG Impression: LEFT VENTRICULAR HYPERTROPHY Electronically Signed By: Krys Yo 18-Aug-2017 21:10:25
[2017-08-18] MEDS ORDERED: ASPIRIN 81 MG CHEWABLE TAB PO ONE (15:01)
[2017-08-18 15:07] LABS: PLATELET COUNT 247 10^3/uL (150-400)
[2017-08-18 15:21] LABS: INR 0.93 (0.83-1.16); PROTIME(PATIENT) 12.7 SEC (12.0-15.0)
--- NOTE | 2017-08-18 16:01 | EDPHY ---
H & P Time Seen by Provider: 08/18/17 15:47 HPI/ROS: HPI Lightheaded. 66-year-old male by private vehicle with his . This patient has a history of quadruple bypass. He has 7 stents currently and he has a pacemaker as well. He reports that he woke up this morning and he felt lightheaded. He denies vertigo. He states that he feels faint. This is worse with exertion and walking. He denies any new shortness of breath. He has a history of COPD and has had chronic dyspnea with exertion secondary to this for many years. He has not had any chest pain. He reports that he was diagnosed with a sinus infection recently. Denies fever. He reports that the symptoms have been persistent throughout the afternoon and he was up walking prior to coming the emergency department and felt more lightheaded than this morning. He did not lose consciousness but states this episode prompted him to come to the emergency department. ROS: Constitutional: No fever, no chills. As above. Eyes: No discharge. No changes in vision. ENT: No sore throat. No nasal congestion or rhinorrhea. Respiratory: No cough. As above. Cardiac: No chest pain, no palpitations. Gastrointestinal: No abdominal pain, no vomiting, no diarrhea. Genitourinary: No hematuria. No dysuria or increased frequency with urination. Musculoskeletal: No back pain. No neck pain. No myalgias or arthralgias. Skin: No rashes. Neurological: No headache. No focal weakness or altered sensation. Past medical history: COPD, quadruple bypass, cardiac stents x7, chronic bronchitis, esophageal dilation, pacemaker placed in 2017. His diagnostic medical sonographer is Dr. John Caban. Social history: Former smoker. Here with significant other. Physical Exam: General Appearance: Alert, no distress. This patient is responding to questions appropriately and in full sentences. This patient appears well- hydrated and well-nourished. Eyes: Pupils equal and round no pallor or injection. No lid edema, erythema or injection. Respiratory: There are no retractions, lungs are clear to auscultation with good air movement bilaterally. Cardiovascular: Regular rate and rhythm. No murmur. Gastrointestinal: Abdomen is soft and nontender, no masses, bowel sounds normal. No focal tenderness at McBurney's point. No Torres sign. Neurological: Motor sensory function is grossly intact. Cranial nerves are normal. Gait is normal. Skin: Warm and dry, no rashes. Musculoskeletal: Neck is supple and nontender. Extremities are symmetrical. All joints range without pain or impingement. Psychiatric: No agitation. No depression. Database: EKG: EKG time is 2:58 p.m.; EKG shows an atrial sensed ventricular paced rhythm with appropriate discordance. Probable left ventricular hypertrophy. Interpreted by me. Imaging: Chest x-ray AP portable; the cardiac mediastinal silhouette is unremarkable. No evidence of infiltrate or pneumothorax. Left upper chest wall pacemaker. Leads appear intact. No acute cardiopulmonary disease process noted. Interpreted by me. Procedures: Emergency department course: IV placed. Patient was placed on a cafeteria monitor. Vital signs reviewed. He is moderately hypertensive. Vital signs otherwise normal. 4:00 p.m., patient re-evaluated. Resting comfortably at this time. Discussed results of his diagnostic workup. Patient reports that he is still feeling lightheaded. I discussed admission for observation. He endorses. Hospitalist paged. 4:10 p.m., spoke with hospitalist. Case discussed in detail. Patient accepted for admission to telemetry observation. Patient's remaining emergency department course under my care has been uneventful. He was admitted in stable condition. Differential Diagnosis: The differential diagnosis on this patient includes but is not limited to arrhythmia, transient hypotension, acute coronary syndrome. CVA, TIA, serious bacterial infection unlikely. This represents a partial list of diagnoses considered. These considerations are based on history, physical exam, past history, reassessment and diagnostic testing. Smoking Status: Former smoker Constitutional: Initial Vital Signs Temperature (C) 37.2 C 08/18/17 14:40 Heart Rate 72 08/18/17 14:40 Respiratory Rate 18 08/18/17 14:40 Blood Pressure 157/89 H 08/18/17 14:40 O2 Sat (%) 95 08/18/17 14:40 O2 Delivery Mode Room Air Allergies/Adverse Reactions: Beta-Blockers (Beta-Adrenergic Bloc Allergy (Intermediate, Verified 08/18/17 14: 43) syncope Home Medications: Medication Instructions Recorded predniSONE 10 mg PO DAILY 04/12/14 Albuterol [Proventil Inhaler HFA 2 puffs IH Q4 PRN 07/05/16 (*)] Aspirin EC [Aspirin EC 325 mg (*)] 325 mg PO DAILY@14 08/18/17 Cholecalciferol Vit D3 [Vitamin D3 2,000 units PO DAILY 08/18/17 2000 units tab (OTC)] Clopidogrel Bisulfate [Plavix (*)] 75 mg PO HS 08/18/17 LORazepam [Ativan (*)] 1 mg PO HS PRN 08/18/17 Medical Decision Making - Diagnostics Imaging Results: Imaging Impressions Chest X-Ray 08/18/17 15:01 Impression: Chest negative for acute abnormality. - Data Points Laboratory Results: Laboratory Results 08/18/17 15:00 08/18/17 15:00 08/18/17 08/18/17 08/18/17 15:00 15:00 15:00 WBC 8.05 10^3/uL 10^3/uL (3.80-9.50) RBC 5.24 10^6/uL 10^6/uL (4.40-6.38) Hgb 17.1 g/dL g/dL (13.7-17.5) Hct 50.2 % % (40.0-51.0) MCV 95.8 fL fL (81.5-99.8) MCH 32.6 pg pg (27.9-34.1) MCHC 34.1 g/dL g/dL (32.4-36.7) RDW 13.8 % % (11.5-15.2) Plt Count 247 10^3/uL 10^3/uL (150-400) MPV 10.6 fL fL (8.7-11.7) Neut % (Auto) 64.2 % % (39.3-74.2) Lymph % (Auto) 22.1 % % (15.0-45.0) [place] % (Auto) 7.5 % % (4.5-13.0) Eos % (Auto) 5.1 % % (0.6-7.6) Baso % (Auto) 0.6 % % (0.3-1.7) Nucleat RBC Rel Count 0.2 % % (0.0-0.2) Absolute Neuts (auto) 5.17 10^3/uL 10^3/uL (1.70-6.50) Absolute Lymphs (auto) 1.78 10^3/uL 10^3/uL (1.00-3.00) Absolute Monos (auto) 0.60 10^3/uL 10^3/uL (0.30-0.80) Absolute Eos (auto) 0.41 10^3/uL H 10^3/uL (0.03-0.40) Absolute Basos (auto) 0.05 10^3/uL 10^3/uL (0.02-0.10) Absolute Nucleated RBC 0.02 10^3/uL H 10^3/uL (0-0.01) Immature Gran % 0.5 % % (0.0-1.1) Immature Gran # 0.04 10^3/uL 10^3/uL (0.00-0.10) PT 12.7 SEC SEC (12.0-15.0) INR 0.93 (0.83-1.16) APTT 24.1 SEC SEC (23.0-38.0) Sodium 144 mEq/L mEq/L (135-145) Potassium 5.0 mEq/L mEq/L (3.5-5.2) Chloride 107 mEq/L mEq/L (97-110) Carbon Dioxide 26 mEq/l mEq/l (22-31) Anion Gap 11 mEq/L mEq/L (8-16) BUN 17 mg/dL mg/dL (7-23) Creatinine 0.8 mg/dL mg/dL (0.7-1.3) Estimated GFR > 60 Glucose 106 mg/dL H mg/dL (70-100) Calcium 9.6 mg/dL mg/dL (8.5-10.4) Troponin I 0.015 ng/mL ng/mL (0.000-0.034) Medications Given: Discontinued Medications Aspirin (Aspirin) 324 mg PO EDNOW ONE Stop: 08/18/17 15:02 Last Admin: 08/18/17 15:17 Dose: Not Given Departure - Departure Disposition: [facility] Acute Clinical Impression: History of coronary artery disease, Lightheaded
[2017-08-18] MEDS ORDERED: ACETAMINOPHEN 325 MG TAB PO PRN (17:56)
[2017-08-18] MEDS ORDERED: ONDANSETRON 4 MG/2 ML VIAL IVP PRN (17:56)
[2017-08-18] MEDS ORDERED: ONDANSETRON DISINTEGRATING 4 MG TAB PO PRN (17:56)
[2017-08-18] MEDS ORDERED: ALBUTEROL 60 PUFFS/8 GM MDI IH PRN (17:58)
[2017-08-18] MEDS: NS 1,000 ML IV SCH (18:20)
--- NOTE | 2017-08-18 18:38 | PDGENHP ---
History and Physical - Chief Complaint Acute lightheadedness - History of Present Illness Primary care provider: Dr. Tere Aldana Primary dianeticist: Dr. Remy Caban Primary glass forming crew member: Dr. Jose Skinner Primary ear nose and throat: Dr. Wayne HPI: 66-year-old male presenting with acute lightheadedness characterized as feeling"faint", with associated poor appetite, increased thirst, mild sore throat and sinus congestion. The patient had been recovering from the sore throat and sinus congestion after being diagnosed as having was interpreted as a sinus infection at the ear nose and throat office and receiving antibiotics and nasal spray up until 3 days prior. The onset of his lightheadedness began acutely at rest, on the morning of presentation, and the patient noticed it even when he turned over in his bed. He reports that it was somewhat exacerbated by exertion on the morning of presentation, and he sought medical attention. Although the duration was somewhat persistent throughout the morning , the patient reports that his symptoms have somewhat subsided. He reports that he was otherwise feeling well on the day prior to presentation, he reports that his appetite has been somewhat poor but he has been attempting to maintain normal oral intake of solids and liquids, and he denies any consumption of alcohol over the past week. He reports that he exercise on the treadmill for approximately 1.5 miles daily, and he has not noted any recent reduction exercise tolerance or any chest pain. History Information - Allergies/Home Medication List Allergies/Adverse Reactions: Beta-Blockers (Beta-Adrenergic Bloc Allergy (Intermediate, Verified 08/18/17 14: 43) syncope Home Medications: predniSONE 10 mg PO DAILY 04/12/14 [Last Taken 08/18/17] Albuterol [Proventil Inhaler HFA (*)] 2 puffs IH Q4 PRN 07/05/16 [Last Taken 07:00] Aspirin EC [Aspirin EC 325 mg (*)] 325 mg PO DAILY@14 08/18/17 [Last Taken 08/18] Cholecalciferol Vit D3 [Vitamin D3 2000 units tab (OTC)] 2,000 units PO DAILY [Last Taken 08/18/17] Clopidogrel Bisulfate [Plavix (*)] 75 mg PO HS 08/18/17 [Last Taken 08/17/17] LORazepam [Ativan (*)] 1 mg PO HS PRN 08/18/17 [Last Taken Unknown] I have personally reviewed and updated: family history, medical history, social history, surgical history - Past Medical History coronary artery disease (Status post CABG as well as numerous cardiac stents, most recently received PCI in July of 2016 with stenting of the LAD, ramus, PCI to the left mainSchatzki ring with stricture and dilationCOPD with chronic steroid therapy) - Surgical History Reports: coronary bypass surgery ( A) Additional surgical history: Esophageal dilation - Family History Additional family history: No family history of head and neck cancer - Social History Smoking Status: Former smoker Alcohol Use: Occasionally (None recent) Drug Use: None Additional social history: Exercise on treadmill for 1.5 miles daily Review of Systems Review of Systems: ROS: 10pt was reviewed & negative except for what was stated in HPI & below Constitutional: Reports: weakness Cardiac: Reports: lightheadedness Physical Exam Physical Exam: Temp Pulse Resp BP Pulse Ox 37.0 C 74 16 136/80 H 94 08/18/17 17:15 08/18/17 17:15 08/18/17 17:15 08/18/17 17:15 08/18/17 17:15 Constitutional: no apparent distress, appears nourished, not in pain Eyes: PERRL, anicteric sclera, EOMI Ears, Nose, Mouth, Throat: moist mucous membranes, hearing normal, ears appear normal, no oral mucosal ulcers Cardiovascular: regular rate and rhythym, no murmur, rub, or gallop, edema ( Trace bilateral lower extremity), No carotid bruit Respiratory: no respiratory distress, no rales or rhonchi, expiratory wheeze ( Faint bilaterally), No bronchial breath sounds, No respiratory distress Gastrointestinal: normoactive bowel sounds, soft, non-tender abdomen, no palpable masses Genitourinary: no bladder fullness, no bladder tenderness Neurologic: AAOx3, sensation intact bilaterally, No weakness, No facial droop Psychiatric: interacting appropriately, not anxious, not encephalopathic, thought process linear Lab Data & Imaging Review 08/18/17 15:00 08/18/17 15:00 WBC 8.05 10^3/uL (3.80-9.50) 08/18/17 15:00 RBC 5.24 10^6/uL (4.40-6.38) 08/18/17 15:00 Hgb 17.1 g/dL (13.7-17.5) 08/18/17 15:00 Hct 50.2 % (40.0-51.0) 08/18/17 15:00 MCV 95.8 fL (81.5-99.8) 08/18/17 15:00 MCH 32.6 pg (27.9-34.1) 08/18/17 15:00 MCHC 34.1 g/dL (32.4-36.7) 08/18/17 15:00 RDW 13.8 % (11.5-15.2) 08/18/17 15:00 Plt Count 247 10^3/uL (150-400) 08/18/17 15:00 MPV 10.6 fL (8.7-11.7) 08/18/17 15:00 Neut % (Auto) 64.2 % (39.3-74.2) 08/18/17 15:00 Lymph % (Auto) 22.1 % (15.0-45.0) 08/18/17 15:00 [place] % (Auto) 7.5 % (4.5-13.0) 08/18/17 15:00 Eos % (Auto) 5.1 % (0.6-7.6) 08/18/17 15:00 Baso % (Auto) 0.6 % (0.3-1.7) 08/18/17 15:00 Nucleat RBC Rel Count 0.2 % (0.0-0.2) 08/18/17 15:00 Absolute Neuts (auto) 5.17 10^3/uL (1.70-6.50) 08/18/17 15:00 Absolute Lymphs (auto) 1.78 10^3/uL (1.00-3.00) 08/18/17 15:00 Absolute Monos (auto) 0.60 10^3/uL (0.30-0.80) 08/18/17 15:00 Absolute Eos (auto) 0.41 10^3/uL (0.03-0.40) H 08/18/17 15:00 Absolute Basos (auto) 0.05 10^3/uL (0.02-0.10) 08/18/17 15:00 Absolute Nucleated RBC 0.02 10^3/uL (0-0.01) H 08/18/17 15:00 Immature Gran % 0.5 % (0.0-1.1) 08/18/17 15:00 Immature Gran # 0.04 10^3/uL (0.00-0.10) 08/18/17 15:00 PT 12.7 SEC (12.0-15.0) 08/18/17 15:00 INR 0.93 (0.83-1.16) 08/18/17 15:00 APTT 24.1 SEC (23.0-38.0) 08/18/17 15:00 Sodium 144 mEq/L (135-145) 08/18/17 15:00 Potassium 5.0 mEq/L (3.5-5.2) 08/18/17 15:00 Chloride 107 mEq/L (97-110) 08/18/17 15:00 Carbon Dioxide 26 mEq/l (22-31) 08/18/17 15:00 Anion Gap 11 mEq/L (8-16) 08/18/17 15:00 BUN 17 mg/dL (7-23) 08/18/17 15:00 Creatinine 0.8 mg/dL (0.7-1.3) 08/18/17 15:00 Estimated GFR > 60 08/18/17 15:00 Glucose 106 mg/dL (70-100) H 08/18/17 15:00 Calcium 9.6 mg/dL (8.5-10.4) 08/18/17 15:00 Troponin I 0.015 ng/mL (0.000-0.034) 08/18/17 15:00 Visualized and Interpreted Chest x-ray results: Yes Chest X-Ray results: no infiltrate (Permanent pacemaker in place) Assessment & Plan Assessment: 66-year-old male presenting with acute lightheadedness in the setting of the severe coronary artery disease Plan: 1. Lightheadedness. Acute, new problem this provider, further workup indicated. Patient's symptom is particularly concerning given that it was a presenting symptom approximately 1 year ago when he was determined to be experiencing flow-limiting stenosis in his left main, lad, ramus and required PCI and stenting -given recent low oral intake, placed on IV fluids overnight get orthostatic vital signs -monitor on telemetry overnight and get interrogation of [place] permanent pacemaker -ensure no viral cause with respiratory viral panel given his recent sinus infection -get echocardiogram given that his most recent echo study was exactly 1 year ago and he has not had any subsequent imaging to gauge ejection fraction or any valvular anatomy -will get cardiology consultation for tomorrow a.m., Dr. Elmer Pool notified 2. Coronary artery disease. Severe, chronic, continue dual anti-platelet therapy, statin medication -reviewed outside records including 08/11/[address] John Zaldivar, he characterizes the patient's coronary disease on that presentation as requiring PCI to the left main, drug-eluting stent to the LAD and ramus, discharged on dual anti-platelet therapy and statin 3. COPD. Chronic steroid dependency, continue Diet. Cardiac Prophylaxis. High risk, Lovenox for Code. Full per patient, [place] is MD POA Disposition. Anticipated discharge is 08/19, pending further workup as outlined above. I have discussed patient's presentation with Dr. Krys Yo, he and I both agree the patient is high risk given that his current symptoms are very similar in nature to the symptoms experience 1 year ago when he required PCI to numerous vessels, requires urgent cardiology evaluation.
[2017-08-18] MEDS: LORazepam 1 MG TAB PO PRN (21:01)
[2017-08-18] MEDS: CLOPIDOGREL BISULFATE 75 MG TAB PO SCH (21:01)
--- NOTE | 2017-08-19 08:13 | HOSPPROG ---
Hospitalist Progress Note Objective: Vital Signs Temp Pulse Resp BP Pulse Ox 36.9 C 83 20 132/73 H 91 L 08/19/17 07:46 08/19/17 07:46 08/19/17 07:46 08/19/17 07:46 08/19/17 07:46 08/18/17 08/19/17 08/20/17 05:59 05:59 05:59 Intake Total 1400 Output Total 350 Balance 1050 PT 12.7 SEC (12.0-15.0) 08/18/17 15:00 INR 0.93 (0.83-1.16) 08/18/17 15:00 ICD10 Worksheet Patient Problems: Problems Problem Status Onset History of coronary artery disease Acute Lightheaded Acute Dysphagia Acute Symptomatic bradycardia Acute
[2017-08-19] MEDS ORDERED: NITROGLYCERIN 0.4 MG BTL SL PRN (09:03)
[2017-08-19] MEDS ORDERED: TEMAZEPAM 15 MG CAP PO PRN (09:03)
[2017-08-19] MEDS ORDERED: diphenhydrAMINE 25 MG CAP PO ONE (09:03)
[2017-08-19] MEDS ORDERED: DIAZEPAM 5 MG TAB PO ONE (09:03)
[2017-08-19] MEDS ORDERED: FAMOTIDINE 20 MG TAB PO ONE (09:03)
--- NOTE | 2017-08-19 09:05 | PDPROPOC ---
Sedation Plan of Care Sedation Plan of Care: vital signs stable, mental status noted, patient educated of risks, benefits, alternatives, patient can tolerate sedation ASA Classification: ASA 3 Planned drugs: fentanyl, midazolam Mallampati Score: Class 3 Mallampati Reference Image: Patient passed 3-3-2 rule?: Yes
--- NOTE | 2017-08-19 09:07 | PDHPUP ---
History & Physical Update H&P update statement: This history and physical update is based on an assessment of the patient which was completed after admission or registration (within 24 hours), but prior to the surgery/procedure. H&P update: H&P reviewed & patient examined, no change in patient's condition since H&P completed H&P changes: Patient has similar symptoms as prior to complex proximal and [place] vessel intervention last year July. I have explained the risks, expected benefits and potential complications of this course of action with the patient and he wishes to proceed as planned. Some potential benefits include angina relief, definitive assessment of coronary anatomy and LV function. Complications have been described as , permanent and disabling stroke, heart attack, abnormal heart rhythm, bleeding and damage to blood vessels resulting in tissue or limb loss.
[2017-08-19] MEDS ORDERED: NS 1,000 ML IV SCH ×2 (09:15→11:45)
--- NOTE | 2017-08-19 09:30 | CPEKG ---
Heart Rate: 80 RR Interval: 750 P-R Interval: 180 QRSD Interval: 164 QT Interval: 444 QTC Interval: 513 P [place]: 80 QRS [place]: 264 T Wave [place]: 77 EKG Severity - ABNORMAL ECG - EKG Impression: ATRIAL-SENSED VENTRICULAR-PACED RHYTHM Electronically Signed By: Elmer Pool 19-Aug-2017 12:27:53
[2017-08-19] MEDS ORDERED: fentaNYL 100 MCG/2 ML INJ ONE ×2 (09:42→10:44)
[2017-08-19] MEDS ORDERED: LIDOCAINE 1% 300 MG/30 ML SDV ONE (09:42)
[2017-08-19] MEDS ORDERED: MIDAZOLAM 2 MG/2 ML VIAL ONE ×2 (09:43→10:44)
[2017-08-19] MEDS ORDERED: IOPAMIDOL (ISOVUE-370) 150 ML BTL IV ONE (09:43)
[2017-08-19] MEDS ORDERED: HYDROCORTISONE 100 MG/2 ML VIAL IVP ONE (09:50)
[2017-08-19] MEDS: ENOXAPARIN 40 MG/0.4 ML SYR SC SCH (09:50)
[2017-08-19] MEDS: predniSONE 10 MG TAB PO SCH (09:52)
--- NOTE | 2017-08-19 10:21 | ECHO ---
[email or web address] [address] [address] Main: [phone] Fax: [email or web address] Echocardiogram Name: SUNNI SNYDER MR#: [id number] Study Date: 08/19/2017 Study Time: 07:47 AM Date of : 1950 Age: 66 year(s) Height: 180.3 cm (71 in.) Weight: 79.83 kg (176 lb.) BSA: 2 m2 Gender: Male Examination: Echo Indication: eval lightheadedness Image Quality: Contrast: Requested by: Elmer Motta BP: 132 mmHg/73 mmHg Heart Rate: Rhythm: Normal sinus rhythm Indication: eval lightheadedness Procedure Staff Life Skills Coordinator: Carrie Rogers [facility] Reading Physician: John Zaldivar MD Requesting Provider: Conclusions: Normal size left ventricle. Mild concentric LV hypertrophy. EF is 51 %. Normal diastolic LV function. Left ventricular dyskinesis most prominient in the apex. Basal inferior septal, basal inferoseptal and a small areal of midseptal hypokinesis. Normal size right ventricle. Normal RV function. There is a pacemaker lead noted in the right ventricle. The left atrium is normal in size. The right atrium is normal in size. There is a pacemaker lead noted in the right atrium. The mitral valve is normal in appearance and function. Mild mitral valve regurgitation is present. No mitral stenosis is present. The aortic valve is tri-leaflet and functions normally. Trivial aortic valve regurgitation. No aortic valve stenosis is present. The tricuspid valve is normal in appearance and function. Mild tricuspid regurgitation is present. Right ventricular systolic pressure measures 25mmHg. The pulmonary artery pressure is normal. The pulmonic valve is normal in appearance and function. There is no pulmonic regurgitation seen. The aorta is normal. Normal size aortic root measuring 2.9 cm. Normal size ascending aorta measuring 3.2 cm. The IVC is normal sized. No pericardial effusion. There is pericardial fat. Patient: SUNNI SNYDER Study Date: 08/19/2017 Page 1 of 3 07:47 AM These findings are consistent with an ischemic cardiomyopathy as well as possibly a superimposed pacer mediated dysynchrony. Plan to proceed with cardiac cath given similar symptoms prior to left main stent. Measurements: Chambers Valvular Assessment AV/MV Valvular Assessment TV/PV Normal Normal Normal Name Value Range Name Value Range Name Value Range Ao Sujata (MM): 2.9 cm (2.2 cm-3.7 AV Vmax: 1.17 m/s (1 m/s-1.7 TR Vmax: 2.23 mm/s ( - ) cm) m/s) TR PGmax: 20 mmHg ( - ) IVSd (2D): 1.2 cm (0.6 cm-1.1 AV maxP mmHg ( - ) syst. PAP: 25 mmHg ( - ) cm) LVOT Vmax: 0.70 m/s (0.7 m/s-1.1 PV Vmax: 0.80 m/s (0.6 m/s-0.9 LVDd (2D): 4.7 cm (4.2 cm-5.9 m/s) m/s) cm) MV E Vmax: 0.69 m/s ( - ) PV PGmax: 3 mmHg ( - ) LVDs (2D): 3.4 cm (2.1 cm-4 MV A Vmax: 0.90 m/s ( - ) cm) MV E/A: 0.77 ( - ) LVPWd (2D): 1.2 cm (0.6 cm-1 cm) LVEF (BP): 51 % (>=55 %) RVDd(2D): 2.6 cm (1.9 cm-3.8 cmmm) Continued Measurements: Chambers Valvular Assessment AV/MV Valvular Assessment TV/PV Name Value Name Value Name Value LADs Lon.6 cm MV DecTime: 103 m/s CVP (est.): 5 mmHg LA Area: 16.8 cm2 MV E' Septal: 0.06 m/s LA Volume: 39 ml MV E/E' Septal: 11.40 LA Volume Index: 19.5 ml/m2 MV E/E' Lateral: 6.60 RA Area: 14.0 cm2 Additional Vessels Name Value Ao Ascendin.2 cm Findings: Left Ventricle: Normal size left ventricle. Mild concentric LV hypertrophy. Low normal left ventricular systolic function. EF is 51 %. Normal diastolic LV function. Left ventricular dyskinesis most prominient in the apex. Basal inferior septal, basal inferoseptal and a small areal of midseptal hypokinesis. Right Ventricle: Normal size right ventricle. Normal RV function. There is a pacemaker lead noted in the right ventricle. Left Atrium: The left atrium is normal in size. Right Atrium: The right atrium is normal in size. There is a pacemaker lead noted in the right atrium. Mitral Valve: The mitral valve is normal in appearance and function. Mild mitral valve regurgitation is present. No mitral stenosis is present. Aortic Valve: The aortic valve is tri-leaflet and functions normally. Trivial aortic valve regurgitation. No aortic valve stenosis is present. Tricuspid Valve: The tricuspid valve is normal in appearance and function. Mild tricuspid regurgitation is present. Right ventricular systolic pressure measures 25mmHg. The pulmonary artery pressure is normal. Pulmonic Valve: The pulmonic valve is normal in appearance and function. There is no pulmonic regurgitation seen. Patient: SUNNI SNYDER Study Date: 08/19/2017 Page 2 of 3 07:47 AM Aorta: The aorta is normal. Normal size aortic root measuring 2.9 cm. Normal size ascending aorta measuring 3.2 cm. IVC: The IVC is normal sized. Pericardium: No pericardial effusion. There is pericardial fat. (No Signature Object) Patient: SUNNI SNYDER Study Date: 08/19/2017 Page 3 of 3 07:47 AM [id number]
--- NOTE | 2017-08-19 10:49 | PDDXCAT ---
Diagnostic Cath Note - . Date: 08/19/17 Principal Database Developer: Zen Indication: CCC Class III and IV angina on medical treatment - Procedure Access: right groin - Materials Left Heart Cath size: 6F Left Heart Cath materials: standard multipack (JL4, JR4, pigtail) - Findings-Left Heart Catheterization LM: The LM is 5mm in size. It trifurcates into LAD, Ramus, Circumflex system. The distal left main has been previously stented. The stent is widely patent. LAD: The LAD is 3 mm in size. It ws previously stented. There is an 80% obstruction in the distal LAD prior to the apex where the vessel is quite small and approximately 1.5 mm in size, LUIS ALBERTO III flow is present. LCX: The LCX is 3 mm in size with competitive flow distally. This is consistent with a patent graft. RCA: It is 3mm in size. It is occluded after a small branch. There is 100% blockage. LUIS ALBERTO 0 flow. Ramus: There's a 70% ostial obstruction near the takeoff from the left main, which actually looks better than post stent in 07/2016. This vessel is an important vessel and does not have a patent graft. rSV.The rSVG vein graft is widely patent to a small diagonal branch.. Because of the graft, there is discrepancy in size and anastamosis. This causes sluggish flow within the vein graft. LUIS ALBERTO III and normal flow is present in the diagonal. 2. The rSVG to the RCA has a new 99% obstruction in the distal graft at a valve. 3. The rSVG to the Circ/OM is widely patent and unchanged compared to angio last year. This may in fact be an arterial free graft. In any case the vessel has a 30% stenosis and some haziness near the ostium, but appears to be widely patent. MAYA: The MAYA is known to be occluded and was not injected. JUSTYN: In July 2016 the JUSTYN was known to go to a small vessel previously dissected. It was not injected. The brachiocephalic trunk previously appeared to have a posssible stenosis on prior injection. Repeat angiography was performed and no stenosis was identified. This was most likely secondary to catheter bias previously and is in essence a pseudo obstruction. EDP: The LVEDP is 23 mmHg LVEF: The EF is mildly decreased at 45%. Wall motion: The EF is mildly decreased at 45%. There is anterior wall hypokinesis...? The visualized portion of the thoracic aortic valce reveals three sinuses of valsalva most consistent with a trileaflet valve. There is no gradient on pullback across the aortic valve. There is no evidence of latonya dissection or aneurysm formation. Complications: NONE. Estimated blood loss: <50ml Closure method: Angioseal Assessment: The patient has severe new [place] vessel coronary artery disease and graft disease with new flow limiting obstruction at the distal rSVG to the RCA. The lesion was subsequently repaired with a drug eluting stent. Plan: Dual antiplatelet therapy with Aspirin 325 mg for the first month followed by Aspirin 81 mg along with Plavix 75 mg daily should be continued for at least 1 year following drug eluting stent implantation. No elective surgery for the first 3 months. Decisions to stop dual antiplatelet therapy should involve our office at [facility]. [phone]. Intervention: A 6 Yi MPA guiding catheter was used for guide catheter support. A 0.014 Intuition wire was advanced across the lesion in the distal rSVG to the RCA under direct fluoroscopic and angiographic guidance. The 99% lesion was the primarily stented with a 4.0 x 20 mm Synergy drug eluting stent (SUSANA). A post stent deployment angioplasty was performed using a 4.5 x 8 mm NC balloon with serial inflations to improve stent apposition to the vessel wall in the region of the valve. The maximum pressure was 18 SANDRA. There is 15% post stent residual stenosis. There was LUIS ALBERTO III flow pre and post stent implantation. Patient Problems: Problems Problem Status Onset History of coronary artery disease Acute Lightheaded Acute Dysphagia Acute Symptomatic bradycardia Acute
[2017-08-19] MEDS ORDERED: BIVALIRUDIN 250 MG/5 ML VIAL IV ONE (10:59)
[2017-08-19] MEDS ORDERED: CLOPIDOGREL BISULFATE 75 MG TAB ONE (11:28)
[2017-08-19] MEDS ORDERED: ATROPINE SULFATE 1 MG/10 ML SYR IVP PRN (11:31)
[2017-08-19] MEDS ORDERED: CLOPIDOGREL BISULFATE 75 MG TAB PO ONE (11:31)
--- NOTE | 2017-08-19 12:05 | ASMTCMCOM ---
CM Note CM Note Notes: 08/20/2017 Case Management Note Met pt during rounds this morning. Pt admitted after episode of lightheadedness and near syncope. Pt is at the cardiac catheterization technician today. PT is recommending independent d/c. Pt is . Case Management d/c poc: home independent with follow up as directed. Case Management available if needs change. Date Signed: 08/19/2017 12:05 PM Electronically Signed By:Maru Arauz RN
--- NOTE | 2017-08-19 12:48 | CPEKG ---
Heart Rate: 79 RR Interval: 759 P-R Interval: 196 QRSD Interval: 160 QT Interval: 452 QTC Interval: 519 P [place]: 71 QRS [place]: 269 T Wave [place]: 84 EKG Severity - ABNORMAL ECG - EKG Impression: ATRIAL-SENSED VENTRICULAR-PACED COMPLEXES EKG Impression: NONSPECIFIC IVCD WITH LAD EKG Impression: CONSIDER LEFT VENTRICULAR HYPERTROPHY Electronically Signed By: Blane Julio 19-Aug-2017 13:37:27
[2017-08-19] MEDS ORDERED: CALCIUM CARBONATE 500 MG CHEWABLE TAB PO PRN (12:59)
--- NOTE | 2017-08-19 13:33 | HOSPPROG ---
Hospitalist Progress Note Assessment/Plan: #New rSVG gfrat to RCA occlusion -99% occluded with SUSANA placement. -Dual antiplatelet therapy #Lightheadedness -due to problem 1; had similar sxs prior to initial stent #CAD: prior CABG, stent to LAD 08/13. -Plavix, ASA. Statin not listed on med list; will d/w patient. Had syncope with BB in past #COPD: no e/o exacerbation #Chronic steroid use: on Vit d/calcium #Diet: cardiac #DVT ppx: SCDs #Disp: warrants inpt admission for telemetry post-cath. May DC in morning if clinically stable Subjective: no CP or SOB Objective: Vital Signs Temp Pulse Resp BP Pulse Ox 36.9 C 83 20 134/86 H 91 L 08/19/17 07:46 08/19/17 07:46 08/19/17 07:46 08/19/17 08:40 08/19/17 07:46 Microbiology 08/18/17 21:00 Respiratory Panel (PCR) - Final Nasal, Sinus - Garrett Viral Transport No Organism Detected 08/18/17 08/19/17 08/20/17 05:59 05:59 05:59 Intake Total 1400 Output Total 350 Balance 1050 PT 12.7 SEC (12.0-15.0) 08/18/17 15:00 INR 0.93 (0.83-1.16) 08/18/17 15:00 - Physical Exam Constitutional: no apparent distress Eyes: PERRL Ears, Nose, Mouth, Throat: moist mucous membranes Cardiovascular: regular rate and rhythym, no murmur, rub, or gallop, No edema Respiratory: no respiratory distress Gastrointestinal: normoactive bowel sounds Genitourinary: no bladder fullness Skin: warm Musculoskeletal: full muscle strength Neurologic: AAOx3, CN II-XII Intact Psychiatric: interacting appropriately ICD10 Worksheet Patient Problems: Problems Problem Status Onset Dysphagia Acute Symptomatic bradycardia Acute History of coronary artery disease Acute Lightheaded Acute
[2017-08-19] MEDS ORDERED: ASPIRIN EC 325 MG TAB PO SCH (14:00)
--- NOTE | 2017-08-19 14:11 | PDMN ---
Medical Necessity Medical necessity: change to IP; los>2mn for CAD, with RCA 99% occlusion, requiring SUSANA stent placement; requires continued tele post cath; hx CABG, COPD , chronic steroid use; per order and progress note 08/19/17
[2017-08-19] MEDS: CHOLECALCIFEROL VIT D3 2,000 UNITS TAB/CAP PO SCH (17:13)
[2017-08-19] MEDS: NS 1,000 ML IV SCH (17:14)
[2017-08-19] MEDS: LORazepam 1 MG TAB PO PRN (20:04)
[2017-08-19] MEDS: CLOPIDOGREL BISULFATE 75 MG TAB PO SCH (20:30)
[2017-08-20 07:32] VITALS: BP 117/67
[2017-08-20] MEDS: ENOXAPARIN 40 MG/0.4 ML SYR SC SCH (08:52)
[2017-08-20] MEDS: predniSONE 10 MG TAB PO SCH (08:52)
[2017-08-20] MEDS: CHOLECALCIFEROL VIT D3 2,000 UNITS TAB/CAP PO SCH (08:52)
--- NOTE | 2017-08-20 10:34 | PDCARPN ---
Cardiology Progress Note Chief Complaint: Dizziness, Fatigued Assessment/Plan: Assessment: CAD with history of CABG and stents. Cardiac Angiogram finding 99% blockage of rSVG-Cx, OM at the distal graft valve. SUSANA placed. EF 45%. Remain on Plavix. ASA -EC 325 mg QD for one month, then decrease to 81 mg QD. Groin site R-groin non-tender. No ecchymosis or induration. Gd leg pulses. Plan: Home today. Follow up with Dr Zaldivar, or Dr Caban his primary tongue binder. 08/20/17 10:28 Subjective: I feel much better today. Not Dizzy, and and have more energy. Reviewed/Discussed With: hospitalist, multidisciplinary team Time Spent With Patient: 20 minutes Objective: Vital Signs (8 Hrs) Temp Pulse Resp BP Pulse Ox 08/20/17 07:32 36.7 C 79 14 117/67 93 08/20/17 04:00 36.9 C 80 16 99/64 L 92 Intake/Output (24 Hrs) 08/19/17 08/20/17 08/21/17 05:59 05:59 05:59 Intake Total 1400 1250 Output Total 350 Balance 1050 1250 Intake: Oral (ml) 400 250 IV Intake (ml) 1000 1000 Output: Urine (ml) 350 Urinal 350 Other: Weight 79.6 kg 78.7 kg Intake Quantity Yes Sufficient Number of Voids Toilet 1 Urinal 1 Result Diagrams: 08/18/17 15:00 08/18/17 15:00 - Physical Exam Constitutional: no apparent distress Cardiovascular: regular rate and rhythm, no murmurs, no rubs, no gallops Peripheral Pulses: 2+: femoral (R), dorsalis-pedis (R), dorsalis-pedis (L) Respiratory: clear to auscultate bilat, no crackles, no wheezes Skin: warm, no edema Neurologic: AAOx3 Psychiatric: cooperative, interactive ICD10 Worksheet Patient Problems: Problems Problem Status Onset Dysphagia Acute Symptomatic bradycardia Acute History of coronary artery disease Acute Lightheaded Acute
--- NOTE | 2017-08-20 12:24 | GDS ---
[f rep st] DISCHARGE SUMMARY DISCHARGE DIAGNOSES: 1. CAD: h/o CABG, stents. New rSVG--circumflex with 99% blockage, status post drug-eluting stent. 2. Cardiomyopathy, ejection fraction of 45%. 3. Lightheadedness. HPI: A 66-year-old male presenting with acute lightheadedness and feeling faint with associated poor appetite, increased thirst, and sinus congestion. He has been recovering from sinus congestion 3 days prior. The lightheadedness worsened with exertion on the day of presentation, so he came to the ER. Concerning for him, was that this was the presenting symptom when he needed stenting last year. HOSPITAL COURSE BY PROBLEM: 1. Coronary artery disease: Given the lightheadedness with similar symptoms to prior, need for stenting, the patient underwent catheterization with 99% blockage of the RSVG-CX, OM at the distal graft valve. Drug-eluting stent was placed. He will remain on Plavix, aspirin 325 mg for 1 month, then 81 daily. He will follow up with Dr. Zaldivar or Dr. Caban. He does not tolerate statins, though this is a recommended medication and is allergic to beta-blockers. 2. Lightheadedness: resolved. Likely anginal equivalent. Plan as above. 3. COPD. No e/o exacerbation. 4. Chronic steroid use. He is on vitamin and calcium. DISPOSITION: Patient is stable for discharge home. NEW MEDICATIONS: Aspirin 325 mg daily for 1 month and 81, thereafter. FOLLOW UP: Dr. Zaldivar or Dr. Caban. PHYSICAL EXAMINATION: VITAL SIGNS: Today, temperature 36.7, blood pressure 117 /67, heart rate 70s, respiration rate 14, 94% on room air. GENERAL: Well- appearing, lying in bed, no acute distress. HEENT: PERRLA. EOMI. Oropharynx clear. CV: Regular rate and rhythm and rhythm. No murmurs, gallops, or rubs. No lower extremity edema. LUNGS: Clear. No crackles or wheezing. ABDOMEN: Soft, nontender, nondistended. Groin site without hematoma or tenderness. Palpable pulse. NEURO: Two through 12 intact. PSYCH: Alert and oriented x3. /[id number]/MODL Time spent on DC >35 min educating on new medications and coordinating discharge. [facility]
--- NOTE | 2017-08-20 13:27 | ASDISCHSUM ---
Discharge Information Plan Status:Home with No Needs Medically Cleared to Leave:08/20/2017 Discharge Date:08/20/2017 12:39 PM CM D/C Disposition:Home, Routine, Self-Care ADT D/C Disposition:Home, Routine, Self-Care Projected Discharge Date:08/20/2017 12:39 PM Transportation at D/C: Discharge Delay Reason: Follow-Up Date:08/20/2017 12:39 PM Discharge Slot: Final Diagnosis: Placement Information Patient Contact Information Contact Name:STANFORD Relationship: Address:[address] City:[place] Alternate Phone: [facility]/Zip Code:[place] [address] Email: Financial Information Financial Class:Medicare Primary Plan Desc:MEDICARE INPATIENT Primary Plan Number:[id number] Secondary Plan Desc:MANUEL Secondary Plan Number:[id number] Assessment Information LACE LACE Length of stay for Answers: 1 day current admission Acuity / Level of Answers: Yes Care: Did the patient have an inpatient admission? Comorbidities - select Answers: Chronic pulmonary disease all that apply Coronary Artery Disease Other Notes: HTN, dysphagia, prior bypass surgery, PPM # of Emergency department Answers: 1-2 visits in the last 6 months Score: 10 Date Signed: 08/20/2017 01:26 PM Electronically Signed By:Maru Arauz RN [facility] Progress Note CM Note CM Note Notes: 08/20/2017 Case Management Note Met pt during rounds this morning. Pt admitted after episode of lightheadedness and near syncope. Pt is at the center medical and lab director today. PT is recommending independent d/c. Pt is . Case Management d/c poc: home independent with follow up as directed. Case Management available if needs change. Date Signed: 08/19/2017 12:05 PM Electronically Signed By:Maru Arauz RN Intervention Information Intervention Type:*BRIGHT-Signed Date of Service:08/19/2017 09:34 AM Patient Type:Observation Staff Member:Shannon Lim Hours: Discipline: Severity: Comment:
== END 2017-08-20 12:39 | disposition home or self-care (01) | DRG 247 ==
LOC: OBSVTOIN 16:55 → F2W 17:15
PROVIDERS: ADMIT Internal Medicine; ATTEND Internal Medicine
PROC: 027034Z Dilation of Coronary Artery, One Artery with Drug-eluting Intraluminal Device, Percutaneous Approach (ICD-10-PCS; principal; 2017-08-19)
PROC: 4A023N7 Measurement of Cardiac Sampling and Pressure, Left Heart, Percutaneous Approach (ICD-10-PCS; principal; 2017-08-19)
DX: T82.390A Other mechanical complication of aortic (bifurcation) graft (replacement), initial encounter (principal); I42.9 Cardiomyopathy, unspecified; I25.10 Atherosclerotic heart disease of native coronary artery without angina pectoris; Z95.0 Presence of cardiac pacemaker; Z95.1 Presence of aortocoronary bypass graft; Z95.5 Presence of coronary angioplasty implant and graft; J44.9 Chronic obstructive pulmonary disease, unspecified; Z79.52 Long term (current) use of systemic steroids; Z87.891 Personal history of nicotine dependence
CPT/HCPCS: 97165-GO; C1725; C1769; C1874; C1887; C9600; C9604; G0378; G8987-GO-CI; G8988-GO-CI; G8989-GO-CI; J0461; J0583; J1200; J1644; J1650; J2250; J3010; J7512; Q9967

== ENCOUNTER → 2017-10-17 | Outpatient (CLI) | payer OTHER | LOC: BMCIMAGING 08:15 | PROVIDERS: ATTEND Orthopaedic Surgery Hand Surgery | DX: M11.262 Other chondrocalcinosis, left knee (principal); M12.862 Other specific arthropathies, not elsewhere classified, left knee; M25.462 Effusion, left knee ==

== ENCOUNTER 2018-02-03 08:53 | Observation (INO) | payer OTHER ==
[2018-02-03] MEDS ORDERED: IPRATROPIUM/ALBUTEROL 3 ML DEYVIAL ONE (09:20)
--- NOTE | 2018-02-03 09:25 | CPEKG ---
Test Reason : OPEN Blood Pressure : / mmHG Vent. Rate : 086 BPM Atrial Rate : 086 BPM P-R Int : 173 ms QRS Dur : 170 ms QT Int : 471 ms P-R-T Axes : 082 267 088 degrees QTc Int : 564 ms Atrial-sensed ventricular-paced complexes Confirmed by Ralph Moreno ([id number]) on 02/03/2018 9:25:00 AM Referred By: Confirmed By:Ralph Moreno
--- NOTE | 2018-02-03 09:25 | EDPHY ---
H & P Time Seen by Provider: 02/03/18 09:24 HPI/ROS: CHIEF COMPLAINT: Shortness of breath and fatigue HISTORY OF PRESENT ILLNESS: Patient has been having some worsening fatigue for the last month. Short of breath for the last week. Worse going up the stairs, not associated with chest pain. It does have a little bit of cough. His symptoms including a little bit of being lightheaded and dizzy are reminiscent to the patient the last time he needed 1 of his 9 stents. Symptoms are moderate at this time. He has been trying to decrease his prednisone and got down to 6 mg orally daily until 3 days ago, now is on 10 mg. No hemoptysis or leg swelling associated. REVIEW OF SYSTEMS: Eye: no change in vision ENT: no sore throat Cardiac: no chest pain or syncope Pulmonary: HPI Abdomen: no vomiting, diarrhea, abdominal pain Musculoskeletal: no back pain or leg swelling Skin: no rash Neuro: no headache Constitutional: no fever : no urinary symptoms A comprehensive 10 point review of systems is otherwise negative aside from elements mentioned in the history of present illness. PAST MEDICAL HISTORY: Includes COPD, coronary disease with stenting and bypass , ischemic cardiomyopathy. Pacemaker. Social history: Former smoker General Appearance: Alert and conversant, cooperative. Eyes: No scleral icterus. ENT, Mouth: Normal mucous membranes. Respiratory: Bilateral expiratory wheezing with prolonged expiratory phase, no rales. Cardiovascular: Regular rate and rhythm. Gastrointestinal: Abdomen is soft and non tender. Neurological: Alert, face symmetric, normal motor and sensory in extremities. Skin: Warm and dry, no rashes. Musculoskeletal: No peripheral edema. No calf tenderness. Psychiatric: Not agitated. Emergency Department course/MDM: Clinically appears more likely to be pulmonary but the patient does have symptoms today that he thinks are reminiscent of previous stenting and that is concerning him. The plan for chest x-ray and troponin. Prednisone boost and nebs. Treat for COPD exacerbation, admit for cycling of troponins. Smoking Status: Former smoker Constitutional: Initial Vital Signs Temperature (C) 36.6 C 02/03/18 08:55 Heart Rate 100 02/03/18 08:55 Respiratory Rate 20 02/03/18 08:55 Blood Pressure 139/88 H 02/03/18 08:55 O2 Sat (%) 90 L 02/03/18 08:55 O2 Delivery Mode Room Air Allergies/Adverse Reactions: Beta-Blockers (Beta-Adrenergic Bloc Allergy (Intermediate, Verified 08/18/17 14: 43) syncope Home Medications: Medication Instructions Recorded predniSONE 10 mg PO DAILY 04/12/14 Albuterol [Proventil Inhaler HFA 2 puffs IH Q4 PRN 07/05/16 (*)] Clopidogrel Bisulfate [Plavix (*)] 75 mg PO HS 08/18/17 LORazepam [Ativan (*)] 1 mg PO HS PRN 08/18/17 Aspirin EC [Aspirin EC 325 mg (*)] 325 mg PO DAILY@14 #0 08/20/17 Rosuvastatin Calcium [Crestor 20mg 20 mg PO DAILY 02/03/18 (*)] Medical Decision Making - Diagnostics EKG Interpretation: 12-lead EKG interpreted by me; official reading is in computer system. My interpretation is ventricular pacing rate 86. Imaging Results: Chest x-ray personally interpreted shows sternal wires and pacer otherwise negative. Imaging: I viewed and interpreted images myself Differential Diagnosis: Differential diagnosis considered for shortness of breath including but not limited to pulmonary infectious process, COPD, asthma, pulmonary embolus and congestive heart failure. Consult/Admit Bed Type: [place] [id number] - Data Points Laboratory Results: Laboratory Results 02/03/18 09:25 02/03/18 09:25 02/03/18 02/03/18 02/03/18 09:28 09:25 09:25 WBC 9.72 10^3/uL H 10^3/uL (3.80-9.50) RBC 5.19 10^6/uL 10^6/uL (4.40-6.38) Hgb 17.2 g/dL g/dL (13.7-17.5) Hct 49.3 % % (40.0-51.0) MCV 95.0 fL fL (81.5-99.8) MCH 33.1 pg pg (27.9-34.1) MCHC 34.9 g/dL g/dL (32.4-36.7) RDW 13.2 % % (11.5-15.2) Plt Count 282 10^3/uL 10^3/uL (150-400) MPV 10.3 fL fL (8.7-11.7) Neut % (Auto) 78.8 % H % (39.3-74.2) Lymph % (Auto) 11.5 % L % (15.0-45.0) Spencer % (Auto) 5.2 % % (4.5-13.0) Eos % (Auto) 3.5 % % (0.6-7.6) Baso % (Auto) 0.4 % % (0.3-1.7) Nucleat RBC Rel Count 0.0 % % (0.0-0.2) Absolute Neuts (auto) 7.65 10^3/uL H 10^3/uL (1.70-6.50) Absolute Lymphs (auto) 1.12 10^3/uL 10^3/uL (1.00-3.00) Absolute Monos (auto) 0.51 10^3/uL 10^3/uL (0.30-0.80) Absolute Eos (auto) 0.34 10^3/uL 10^3/uL (0.03-0.40) Absolute Basos (auto) 0.04 10^3/uL 10^3/uL (0.02-0.10) Absolute Nucleated RBC 0.00 10^3/uL 10^3/uL (0-0.01) Immature Gran % 0.6 % % (0.0-1.1) Immature Gran # 0.06 10^3/uL 10^3/uL (0.00-0.10) Sodium 138 mEq/L mEq/L (135-145) Potassium 4.2 mEq/L mEq/L (3.3-5.0) Chloride 107 mEq/L mEq/L (97-110) Carbon Dioxide 22 mEq/l mEq/l (22-31) Anion Gap 9 mEq/L mEq/L (8-16) BUN 14 mg/dL mg/dL (7-23) Creatinine 0.8 mg/dL mg/dL (0.7-1.3) Estimated GFR > 60 Glucose 131 mg/dL H mg/dL (70-100) Calcium 9.5 mg/dL mg/dL (8.5-10.4) POC Troponin I 0.01 ng/mL ng/mL (0.00-0.08) Medications Given: Discontinued Medications Albuterol (Proventil Neb) 3 ml IH EDNOW ONE Stop: 02/03/18 09:39 Last Admin: 10/08/18 09:53 Dose: 3 ml Albuterol/Ipratropium (Duoneb) 3 ml IH EDNOW ONE Stop: 02/03/18 09:28 Last Admin: 02/03/18 09:27 Dose: 3 ml Methylprednisolone Sodium Succinate (Solu-Medrol) 80 mg IVP EDNOW ONE Stop: 02/03/18 09:39 Last Admin: 02/03/18 09:54 Dose: 80 mg Point of Care Test Results: Chemistry 02/03/18 09:28 POC Troponin I 0.01 ng/mL ng/mL (0.00-0.08) Departure - Departure Disposition: [facility] Inpatient Acute Clinical Impression: Chronic obstructive pulmonary disease with acute exacerbation Condition: Good Referrals: Tere Aldana MD [Primary Care Provider] - As per Instructions
[2018-02-03] MEDS ORDERED: IPRATROPIUM/ALBUTEROL 3 ML DEYVIAL IH ONE (09:27)
[2018-02-03] MEDS ORDERED: ALBUTEROL 3 ML DEYVIAL IH ONE (09:38)
[2018-02-03] MEDS ORDERED: methylPREDNISolone SOD SUCC 125 MG/2 ML VIAL IVP ONE (09:38)
[2018-02-03 09:49] LABS: PLATELET COUNT 282 10^3/uL (150-400)
--- NOTE | 2018-02-03 13:01 | PDGENHP ---
History and Physical - Chief Complaint dyspnea with exertion - History of Present Illness 67 yo male with h/o COPD and CAD s/p CABG 9 yrs ago and multiple stents, most recently in 07/2017 presents to ED with SOB and MACKENZIE. He notes feeling more fatigued over past month. In the past 4-5 days, he has had increased SOB, quite noticeable while climbing a flight of stairs. Denies CP or chest pressure , but notes this was not his prominent anginal symptom in the past. No nausea or diaphoresis. He endorses some wheezing. He takes chronic prednisone for COPD and recently has tapered from 10 mg daily to 6 mg daily. Also endorses mild, non-productive cough and vague congestion. No sick contacts. Got his flu shot 1 week ago. In the ED, his troponin was negative. His EKG was paced and unchanged from prior. He received 125 mg IV solumedrol and is admitted for further management. History Information - Allergies/Home Medication List Allergies/Adverse Reactions: Beta-Blockers (Beta-Adrenergic Bloc Allergy (Intermediate, Verified 08/18/17 14: 43) syncope Home Medications: predniSONE 10 mg PO DAILY 04/12/14 [Last Taken 02/03/18] Albuterol [Proventil Inhaler HFA (*)] 2 puffs IH Q4 PRN 07/05/16 [Last Taken 12/14] Clopidogrel Bisulfate [Plavix (*)] 75 mg PO HS 08/18/17 [Last Taken 02/02/18] LORazepam [Ativan (*)] 0.5 - 1 mg PO HS PRN 08/18/17 [Last Taken 02/02/18 1mg] Alendronate Sodium [Fosamax 70 MG (*)] 70 mg PO FR@0700 02/03/18 [Last Taken 09/13] Aspirin [Aspirin 81mg (*)] 81 mg PO HS 02/03/18 [Last Taken 02/02/18] Atorvastatin Calcium [Lipitor 40 mg (*)] 40 mg PO HS 02/03/18 [Last Taken ] Fluticasone/Salmeter 250/50Mcg [Advair 250/50 (*)] 1 puffs IH BID PRN 02/03/18 [ Last Taken 02/03/18] Herbals/Supplements -Info Only 1 ea PO DAILY 02/03/18 [Last Taken Unknown] I have personally reviewed and updated: family history, medical history, social history, surgical history - Past Medical History coronary artery disease (Status post CABG as well as numerous cardiac stents, most recently received PCI in July of 2016 with stenting of the LAD, ramus, PCI to the left mainSchatzki ring with stricture and dilationCOPD with chronic steroid therapy), COPD Additional medical history: CAD prior stents x9 - Surgical History Reports: coronary bypass surgery ( A) Additional surgical history: Esophageal dilation - Family History Additional family history: No family history of head and neck cancer - Social History Smoking Status: Former smoker Alcohol Use: None Drug Use: None Additional social history: Exercise on treadmill for 1.5 miles daily Review of Systems Review of Systems: ROS: 10pt was reviewed & negative except for what was stated in HPI & below Physical Exam Physical Exam: Temp Pulse Resp BP Pulse Ox 36.5 C 87 16 118/77 93 02/03/18 11:51 02/03/18 11:51 02/03/18 11:51 02/03/18 11:51 02/03/18 11:51 Constitutional: no apparent distress Eyes: PERRL Ears, Nose, Mouth, Throat: moist mucous membranes Cardiovascular: regular rate and rhythym Respiratory: no respiratory distress, reduced air movement, expiratory wheeze Gastrointestinal: normoactive bowel sounds, soft, non-tender abdomen Skin: warm Musculoskeletal: full muscle strength Neurologic: AAOx3 Psychiatric: interacting appropriately Lab Data & Imaging Review 02/03/18 09:25 02/03/18 09:25 WBC 9.72 10^3/uL (3.80-9.50) H 02/03/18 09:25 RBC 5.19 10^6/uL (4.40-6.38) 02/03/18 09:25 Hgb 17.2 g/dL (13.7-17.5) 02/03/18 09:25 Hct 49.3 % (40.0-51.0) 02/03/18 09:25 MCV 95.0 fL (81.5-99.8) 02/03/18 09:25 MCH 33.1 pg (27.9-34.1) 02/03/18 09:25 MCHC 34.9 g/dL (32.4-36.7) 02/03/18 09:25 RDW 13.2 % (11.5-15.2) 02/03/18 09:25 Plt Count 282 10^3/uL (150-400) 02/03/18 09:25 MPV 10.3 fL (8.7-11.7) 02/03/18 09:25 Neut % (Auto) 78.8 % (39.3-74.2) H 02/03/18 09:25 Lymph % (Auto) 11.5 % (15.0-45.0) L 02/03/18 09:25 [place] % (Auto) 5.2 % (4.5-13.0) 02/03/18 09:25 Eos % (Auto) 3.5 % (0.6-7.6) 02/03/18 09:25 Baso % (Auto) 0.4 % (0.3-1.7) 02/03/18 09:25 Nucleat RBC Rel Count 0.0 % (0.0-0.2) 02/03/18 09:25 Absolute Neuts (auto) 7.65 10^3/uL (1.70-6.50) H 02/03/18 09:25 Absolute Lymphs (auto) 1.12 10^3/uL (1.00-3.00) 02/03/18 09:25 Absolute Monos (auto) 0.51 10^3/uL (0.30-0.80) 02/03/18 09:25 Absolute Eos (auto) 0.34 10^3/uL (0.03-0.40) 02/03/18 09:25 Absolute Basos (auto) 0.04 10^3/uL (0.02-0.10) 02/03/18 09:25 Absolute Nucleated RBC 0.00 10^3/uL (0-0.01) 02/03/18:25 Immature Gran % 0.6 % (0.0-1.1) 02/03/18:25 Immature Gran # 0.06 10^3/uL (0.00-0.10) 02/03/18 09:25 Sodium 138 mEq/L (135-145) 02/03/18 09:25 Potassium 4.2 mEq/L (3.3-5.0) 02/03/18 09:25 Chloride 107 mEq/L (97-110) 02/03/18 09:25 Carbon Dioxide 22 mEq/l (22-31) 02/03/18 09:25 Anion Gap 9 mEq/L (8-16) 02/03/18 09:25 BUN 14 mg/dL (7-23) 02/03/18 09:25 Creatinine 0.8 mg/dL (0.7-1.3) 02/03/18 09:25 Estimated GFR > 60 02/03/18 09:25 Glucose 131 mg/dL (70-100) H 02/03/18 09:25 Calcium 9.5 mg/dL (8.5-10.4) 02/03/18 09:25 POC Troponin I 0.01 ng/mL (0.00-0.08) 02/03/18 09:28 Visualized and Interpreted Chest x-ray results: Yes Chest X-Ray results: no infiltrate Interpretation: hyperexpanded lung hurtado, peribronchial thickening Visualized and Interpreted EKG results: Yes EKG additional interpertation: V paced Assessment & Plan Assessment: Dyspnea - suspect COPD exacerbation with recent prednisone taper. Also consider anginal equivalent given extensive cardiac hx. -admit to telemetry, trend trop -check echo to eval for WMA, contacted cardiology to discuss further risk stratification -QID duonebs, prn albuterol nebs -add azithromycin for anti-inflammatory effect -increase prednisone to 40 mg daily -send resp viral panel CAD - h/o CABG and multiple stents, most recently 07/2017. -cont ASA, Plavix, statin -trend trop, check echo as above -cardiology consult requested COPD - as above, suspect acute flare possibly 2/2 prednisone taper -increase prednisone -nebs, atbx, no O2 requirement Full code Dispo - obs
[2018-02-03] MEDS ORDERED: ONDANSETRON DISINTEGRATING 4 MG TAB PO PRN (13:08)
[2018-02-03] MEDS ORDERED: ACETAMINOPHEN 325 MG TAB PO PRN (13:08)
[2018-02-03] MEDS ORDERED: ALBUTEROL 3 ML DEYVIAL IH PRN (13:08)
[2018-02-03] MEDS ORDERED: ONDANSETRON 4 MG/2 ML VIAL IVP PRN (13:08)
[2018-02-03] MEDS ORDERED: LORazepam 1 MG TAB PO PRN (13:32)
[2018-02-03] MEDS: FLUTICASONE/SALMETER 250/50MCG DISKUS IH SCH ×2 (13:59→21:16)
[2018-02-03 14:43] LABS: INR 0.96 (0.83-1.16)
--- NOTE | 2018-02-03 15:08 | GCON ---
CARDIOLOGY CONSULTATION DATE OF CONSULTATION: 02/03/2018 CHIEF COMPLAINT: Shortness of breath. HISTORY OF PRESENT ILLNESS: This is a 67-year-old male with history of significant coronary artery d isease status post bypass surgery 10 years ago with recent PCI to SVG to RCA approximately 6 months a go. The patient has been complaining of shortness of breath, dyspnea on exertion and fati melvin over the last month. He indicates that he has been more fatigued climbing up a flight of stairs. He indicates also that this feeling of shortness of breath was consistent with his symptoms 6 month s ago when he had the last PCI performed. In the emergency room his blood pressure and heart rate we re stable. ECG showed A-sensed V- paced. Troponins are negative x1 set. Currently, patient is rest ing quietly. Denies any active discomfort while at rest. PAST MEDICAL HISTORY: Significant for coronary artery disease, COPD, hypertension, hyperlipidemia. PAST SURGICAL HISTORY: Consists of a CABG approximately 10 years ago. Recent PCI in July of 2016, as well as PCI of 2018. HOME MEDICATIONS: Prednisone, albuterol, Plavix, lorazepam, Fosamax, aspirin, Lipitor, fluticasone. SOCIAL HISTORY: Occasional alcohol use. No smoking. REVIEW OF SYSTEMS: The patient currently denies any visual changes. No headache. No throat pain. No palpitations. No chest pain. Does indicate having moderate dyspnea with exertion. No abdominal discomfort. No lower extremity pain. No new rashes. No neurologic issues. PHYSICAL EXAM: VITAL SIGNS: Patient currently afebrile , blood pressure currently 118/77 with a respiration of 12, saturating 95% on room air, heart rate 82. HEENT: Pupils equal, round and reactive to light and accommodation. EOMs intact. CARDIAC: Regular rate and rhythm, S1, S2. LUNG S: There is decreased breath sounds at the bases. ABDOMEN: Soft, nontender, no guarding. EXTREMIT IES: No clubbing, no cyanosis, edema. NEUROLOGIC: The patient is alert x3. LABORATORY VALUES: Currently show troponin negative x1 set. Creatinine 0.8, hemoglobin 17.2, platel ets of 282. ASSESSMENT/PLAN: Shortness of breath. Given the patient's history of coronary artery bypass graft/p ercutaneous coronary intervention as well as chronic obstructive pulmonary disease, I agree with hima mares treatments and blood pressure control today and to re-evaluate the patient in the a.m. If the patient's troponins are elevated and/or his symptoms do not resolve with current medical therapy, we will proceed with right and left heart catheterization to define his underlying anatomy and pulmonic pressures. We will check a cardiac echo today. If the echo additionally shows anything grossly abno rmal compared to his prior echo which did show reduced ejection fraction, then we will have bethela l information to proceed with potential catheterization if needed. The patient understands and agree s with the plan. We will continue to follow closely. /[id number]/MODL
--- NOTE | 2018-02-03 16:10 | ECHO ---
[email or web address] [address] [address] Main: [phone] Fax: Transthoracic Echocardiogram Name: SUNNI SNYDER MR#: [id number] Study Date: 02/03/2018 Study Time: 02:08 PM Date of : 1950 Age: 67 year(s) Height: 180.3 cm (71 in.) Weight: 75.75 kg (167 lb.) BSA: 1.95 m2 Gender: Male Examination: Limited Echo Indication: Dyspnea on exertion, h/o cabg 9 years ago and stent 07/2017. eval wall motion Image Quality: Adequate Contrast: Requested by: Teresita Garcia BP: 118 mmHg/77 mmHg Heart Rate: Rhythm: Indication: Dyspnea on exertion, h/o cabg 9 years ago and stent 07/2017. eval wall motion Procedure Staff Electronics Department Manager: Magi Martin [facility] Reading Physician: Lewis Thayer MD Requesting Provider: Conclusions: Low normal left ventricular systolic function. The ejection fraction is visually estimated to be 50 %. There appears to be hypokinesis of the septum and inferior wall. Mild to moderate mitral regurgitation. Mild aortic valve regurgitation is present. Measurements: Chambers Valvular Assessment AV/MV Valvular Assessment TV/PV Normal Normal Normal Name Value Range Name Value Range Name Value Range LVEF (MOD4): 52 % (>=55 %) Visual EF: 50 % Continued Measurements: Findings: Left Ventricle: Normal size left ventricle. Low normal left ventricular systolic function. The ejection fraction is visually estimated to be 50 %. Regional wall motion abnormality noted. There appears to be hypokinesis of the septum and inferior wall. Right Ventricle: Normal size right ventricle. Normal RV function. Mitral Valve: The mitral valve is normal in appearance and function. Mild to moderate mitral regurgitation. Aortic Valve: The aortic valve is tri-leaflet. Mild aortic valve regurgitation is present. Tricuspid Valve: The tricuspid valve is normal in appearance and function. Mild tricuspid regurgitation is present. Patient: SUNNI SNYDER Study Date: 02/03/2018 Page 1 of 2 02:08 PM Pericardium: No pericardial effusion. (No Signature Object) Patient: SUNNI SNYDER Study Date: 02/03/2018 Page 2 of 2 02:08 PM [id number]
[2018-02-03] MEDS: IPRATROPIUM/ALBUTEROL 3 ML DEYVIAL IH SCH ×2 (16:23→21:17)
[2018-02-03] MEDS ORDERED: CLOPIDOGREL BISULFATE 75 MG TAB PO SCH (21:00)
[2018-02-03] MEDS ORDERED: ASPIRIN 81 MG CHEWABLE TAB PO SCH (21:00)
[2018-02-03] MEDS ORDERED: ATORVASTATIN CALCIUM 40 MG TAB PO SCH (21:00)
[2018-02-04 03:50] VITALS: BP 105/59
[2018-02-04 04:28] LABS: PLATELET COUNT 267 10^3/uL (150-400)
[2018-02-04] MEDS: IPRATROPIUM/ALBUTEROL 3 ML DEYVIAL IH SCH ×2 (05:51→11:42)
--- NOTE | 2018-02-04 07:18 | PDCARPN ---
Cardiology Progress Note Chief Complaint: SOB Assessment/Plan: Assessment: SOB hx of CAD COPD Plan: 02/04/18 07:16 feels much better no CP less SOB suspect [employer] as underlying issue no cath needed Will f/u as outpatient Subjective: feels better Reviewed/Discussed With: multidisciplinary team Time Spent with Patient: greater than 25 minutes Time Spent with Patient: Greater than 25 minutes spent on this patients care, greater than 50% of time spent counseling, educating, and coordinating care regarding the above mentioned plan. Objective: Vital Signs (8 Hrs) Temp Pulse Resp BP Pulse Ox 02/04/18 03:49 37.0 C 96 20 105/59 L 91 L 02/03/18 23:25 36.6 C 94 20 95/61 L 93 Intake/Output (24 Hrs) 02/03/18 02/04/18 02/05/18 05:59 05:59 05:59 Intake Total 700 Balance 700 Intake: Oral (ml) 700 Other: Weight 75.886 kg Result Diagrams: 02/04/18 03:40 02/03/18 09:25 Cardiac Labs: Cardiac Lab Results (72 Hrs) 02/03/18 02/03/18 19:30 13:54 Troponin I < 0.012 < 0.012 - Physical Exam Constitutional: healthy appearing Eyes: PERRL Ears, Nose, Mouth, Throat: moist mucous membranes Cardiovascular: regular rate and rhythm Peripheral Pulses: 1+: femoral (R), femoral (L) Respiratory: no wheezes Gastrointestinal: normoactive bowel sounds Genitourinary: no suprapubic tenderness Skin: no rashes Musculoskeletal: no muscular tenderness Neurologic: AAOx3 Psychiatric: cooperative ICD10 Worksheet Patient Problems: Problems Problem Status Onset Chronic obstructive pulmonary disease with acute exacerbation Acute Dysphagia Acute History of coronary artery disease Acute Lightheaded Acute Symptomatic bradycardia Acute
[2018-02-04] MEDS: FLUTICASONE/SALMETER 250/50MCG DISKUS IH SCH (08:21)
[2018-02-04] MEDS ORDERED: AZITHROMYCIN 250 MG TAB PO SCH (09:00)
[2018-02-04] MEDS ORDERED: predniSONE 20 MG TAB PO SCH (09:00)
--- NOTE | 2018-02-04 10:39 | ASDISCHSUM ---
Discharge Information Plan Status:Home with No Needs Medically Cleared to Leave:02/04/2018 Discharge Date:02/04/2018 CM D/C Disposition:Home, Routine, Self-Care ADT D/C Disposition:Home, Routine, Self-Care Projected Discharge Date:02/04/2018 Transportation at D/C:Family Discharge Delay Reason: Follow-Up Date:02/04/2018 Discharge Slot: Final Diagnosis:Dyspnea Placement Information Patient Contact Information Contact Name:STANFORD Relationship: Address:[address] City:[place] Alternate Phone: [facility]/Zip Code:[place] [address] Email: Financial Information Financial Class:Medicare Primary Plan Desc:MEDICARE OUTPATIENT Primary Plan Number:[id number] Secondary Plan Desc:MANUEL Secondary Plan Number:[id number] Assessment Information LACE LACE Length of stay for Answers: Less than 1 day current admission Acuity / Level of Answers: No Care: Did the patient have an inpatient admission? Comorbidities - select Answers: Chronic pulmonary disease all that apply Coronary Artery Disease Previous myocardial infarction # of Emergency department Answers: 1-2 visits in the last 6 months Score: 6 Date Signed: 02/04/2018 10:38 AM Electronically Signed By:Jyoti Erazo Case Management Discharge Plan Note Case Management Discharge Discharge Order Complete? Answers: Yes Patient to Obtain Answers: via Family Medications Transportation Arranged Answers: Family/Friends Family Notified Answers: Yes Notes: in the room Discharge Comments Notes: Spoke with pt and in the room. Pt comfortable discharging home independently. Anxious to leave. No CM needs noted at this time. CM available should needs change. Date Signed: 02/04/2018 10:37 AM Electronically Signed By:Jyoti Erazo Intervention Information
--- NOTE | 2018-02-04 19:00 | GDS ---
DISCHARGE DIAGNOSES: 1. Dyspnea, likely secondary to chronic obstructive pulmonary disease exacerbation. 2. History of coronary artery disease with prior coronary artery bypass graft and multiple stents, m ost recently in July 2017. CONSULTANTS: Dr. Lewis Thayer, Cardiology. HISTORY OF DETAILS: Please see history and physical dated February 03, 2018. In brief, the patient is a 67-year-old male with a history of coronary artery disease and COPD, who presented to the emergenc y department with dyspnea on exertion. He was admitted to the hospital for further management. HOSPITAL COURSE: The patient was admitted to the cardiac telemetry unit. He did have wheezing and i t is noted his symptom onset occurred with reduction of his chronic prednisone dose from 10 mg down t o 6 mg. His respiratory viral panel was negative. Cardiac workup was pursued given his history. He had negative troponins. An echocardiogram was performed and revealed no changes in his left ventric ular function or wall motion to suggest acute coronary ischemia. Cardiology consult did not recommen d cardiac catheterization. I think this is reasonable as I suspect his symptoms are respiratory in n ature. He was treated with IV steroids on arrival and transitioned to oral prednisone 40 mg daily. He will complete a 5-day steroid burst. In addition, he was given a Z-Montez for its anti-inflammatory effect in the setting of COPD exacerbation. He should continue his Advair and p.[place]. [place] [facility] [place] I recommend he follow up with Pulmonology given his chronic steroid use for presumed COPD. Afte r he completes his steroid burst, he will taper slowly back down to 10 mg daily until he has Pulmonol ogy followup. DISPOSITION: Patient is discharged home in stable condition. FOLLOWUP: 1. Dr. Tere Aldana, primary care. 2. Dr. Stephan Juárez, Pulmonology. DISCHARGE MEDICATIONS: Please see [facility] for completed outpatient medication list. New medication s on discharge include: 1. Prednisone 40 mg p.o. daily for 4 more days, then 30 mg p.o. daily for 3 days, then 20 mg p.o. da jaxon for 3 days, then 10 mg p.o. daily until followup for further taper instructions with his pulmonol ogist or primary care. 2. Azithromycin 250 mg p.o. daily #4, no refills. Continue all other outpatient medications as previously prescribed. /[id number]/MODL
== END 2018-02-04 12:28 | disposition home or self-care (01) ==
LOC: F2W 11:12
PROVIDERS: ADMIT Hospitalist; ATTEND Hospitalist
DX: R06.00 Dyspnea, unspecified (principal); Z95.5 Presence of coronary angioplasty implant and graft; Z87.891 Personal history of nicotine dependence; Z95.0 Presence of cardiac pacemaker
CPT/HCPCS: 71046; 93005; 93308; J2930; J7512; J7613; 84484-PO; 96374

== ENCOUNTER → 2018-06-19 | Outpatient (CLI) | payer OTHER | LOC: BMCIMAGING 09:05 | PROVIDERS: ATTEND Internal Medicine Endocrinology, Diabetes & Metabolism | DX: Z13.820 Encounter for screening for osteoporosis (principal); M81.0 Age-related osteoporosis without current pathological fracture ==